=== PATIENT | male | born 1960 | race American Indian/Alaskan Native ===

== ENCOUNTER 2020-12-30 23:04 | Inpatient (IN) | payer SELFPAY ==
[2020-12-30] MEDS ORDERED: SODIUM CHLORIDE 0.9% 1000 ML 1,000 ML IV ONE ×2 (23:29→23:30)
[2020-12-30] MEDS ORDERED: VANCOMYCIN/NS 1 GM/250 ML 1 GM/250 ML BAG IV ONE (23:30)
[2020-12-30] MEDS ORDERED: ACETAMINOPHEN 500 MG TAB PO ONE (23:31)
--- NOTE | 2020-12-30 23:35 | Event Note ---
ED Screening Note Date of service: 12/30/20 Time: 23:32 ED Screening Note: Patient is a 60-year-old -[place] male with no known past medical history who presents to the ED with complaint of painful swollen ulcerated right plantar foot wound for the last 1 month. Patient states that he cannot remember what may have caused the wound in his right plantar foot and that he has not been able to walk in the last 1 week because of worsening pain, swelling. Prior to arrival in the ED, the family states that the swollen wound started draining thick purulent discharge with blood and they decided bring him over to the ED for evaluation. According to family the patient has not seen any physician in over 15 years. Patient denies headache, fall, heavy lifting, low back pain, dizziness, syncope, traumatic injury, nausea and vomiting, diarrhea, abdominal pain, chest pain or shortness of breath. In the ED, patient is alert and oriented x3 and is not in any distress. Patient is however tachycardic and febrile in triage. Physical exam reveals a quarter sized ulcerated right plantar foot wound with purulent discharge, swollen left foot with mild erythema on the dorsum of the right foot. This initial assessment/diagnostic orders/clinical plan/treatment(s) is/are subject to change based on patients health status, clinical progression and re- assessment by fellow clinical providers in the ED. Further treatment and workup at subsequent clinical providers discretion. Patient/guardian urged not to elope from the ED as their condition may be serious if not clinically assessed and managed. Initial orders include: CBC, CMP, EKG, chest x-ray, right foot x-ray, blood cultures,
--- NOTE | 2020-12-31 00:06 | XRay Report ---
RIGHT FOOT 3 VIEW(S) INDICATION / CLINICAL INFORMATION: right plantar foot ulcer: r/o osteomyelitis COMPARISON: None available. FINDINGS: BONES / JOINT(S): No acute fracture or subluxation. No significant arthritis. No osseous destruction. SOFT TISSUES: Soft tissue irregularity on the plantar aspect of the foot beneath the great toe. No so ft tissue gas. Moderate soft tissue swelling of the forefoot. ADDITIONAL FINDINGS: None. IMPRESSION: 1. Plantar foot ulcer with soft tissue swelling but no soft tissue gas or radiographic evidence for o steomyelitis. Signer Name: Irina Shell MD Signed: 12/31/2020 12:02 AM Workstation Name: [id number]
[2020-12-31 00:18] LABS: Basophils # (Auto) 0.1 K/mm3 (0.0-0.1); Basophils % (Auto) 0.7 % (0.0-1.8); Hematocrit 41.8 % (35.5-45.6); Hemoglobin 13.9 gm/dl (11.8-15.2); Lymphocytes # (Auto) 1.8 K/mm3 (1.2-5.4); Lymphocytes % (Auto) 9.9 % (13.4-35.0); Mean Corpuscular HGB Conc 33 % (32-34); Mean Corpuscular Volume 85 fl (84-94); Monocytes # (Auto) 1.9 K/mm3 (0.0-0.8); Monocytes % (Auto) 10.4 % (0.0-7.3); Platelet Count 212 K/mm3 (140-440); Red Blood Count 4.92 M/mm3 (3.65-5.03); Red Cell Distribution Width 13.1 % (13.2-15.2)
[2020-12-31 00:41] LABS: Alanine Aminotransferase 9 units/L (7-56); Albumin 4.1 g/dL (3.9-5); BUN/Creatinine Ratio 12; Blood Urea Nitrogen 14 mg/dL (9-20); Calcium 9.7 mg/dL (8.4-10.2); Hemolysis Index 4
--- NOTE | 2020-12-31 01:01 | XRay Report ---
CHEST 2 VIEWS INDICATION / CLINICAL INFORMATION: fever, weakness. COMPARISON: None available. FINDINGS: SUPPORT DEVICES: None. HEART / MEDIASTINUM: No significant abnormality. LUNGS / PLEURA: No significant pulmonary or pleural abnormality. No pneumothorax. ADDITIONAL FINDINGS: No significant additional findings. IMPRESSION: 1. No acute findings. Signer Name: Irina Shell MD Signed: 12/31/2020 12:56 AM Workstation Name: [id number]
[2020-12-31] MEDS ORDERED: SODIUM CHLORIDE 0.9% 1000 ML IV SOLN IV ONE (01:05)
[2020-12-31] MEDS ORDERED: INSULIN REGULAR, HUMAN 100 UNITS/1 ML IV ONE (01:13)
[2020-12-31] MEDS ORDERED: PIPERACIL/TAZOBACTA 4.5/NS 100 4.5 GM/100 ML VIAL IV ONE (01:16)
--- NOTE | 2020-12-31 01:18 | Emergency Department Report ---
ED General Adult HPI - General Chief complaint: Extremity Problem,Nontraumatic Stated complaint: RT FOOT INJURY Time Seen by Provider: 12/30/20 23:28 Source: patient Mode of arrival: Ambulatory Limitations: No Limitations - History of Present Illness Initial comments: Patient presents with a month-long history of increasing pain and swelling in the right foot. He had noticed a wound. He does subscribe to polydipsia and polyuria. He was concerned that he might be diabetic, but was never tested. There was no known trauma to the right foot. Over the ensuing month, his symptoms worsen. He ultimately decided to come here because of increasing pain and swelling. There has been no vomiting. There is no diarrhea. He has had no history of recent travel or trauma. Patient has no other rash. He has not noticed any other lesion. He has no chest pain or shortness of breath. He has not noticed hematuria. He has not been on antibiotics lately for any type of infectious process. The pain is an aching and burning pain. It is not aggravated by position. It is aggravated by palpation and ambulation. Severity scale (0 -10): 0 - Related Data Allergies Allergy/AdvReac Type Severity Reaction Status Date / Time No Known Allergies Allergy Unverified 12/30/20 23:18 ED Review of Systems ROS: Stated complaint: RT FOOT INJURY Other details as noted in HPI Comment: All other systems reviewed and negative Constitutional: denies: fever Eyes: denies: vision change ENT: denies: throat pain Respiratory: denies: cough Cardiovascular: denies: chest pain Endocrine: increased thirst, increased urine Gastrointestinal: denies: abdominal pain Genitourinary: denies: dysuria Musculoskeletal: denies: back pain Skin: as per HPI Neurological: denies: headache Hematological/Lymphatic: denies: easy bruising ED Past Medical Hx - Past Medical History Previous Medical History?: No - Surgical History Past Surgical History?: No - Family History Family history: diabetes - Social History Smoking Status: Never Smoker ED Physical Exam - General Limitations: No Limitations, Other (Pulse ox noted and normal) General appearance: alert, in no apparent distress - Head Head exam: Present: atraumatic, normocephalic, normal inspection - Eye Eye exam: Present: normal appearance, EOMI. Absent: scleral icterus - ENT ENT exam: Present: mucous membranes dry, normal external ear exam - Neck Neck exam: Present: normal inspection. Absent: meningismus - Respiratory Respiratory exam: Present: normal lung sounds bilaterally. Absent: respiratory distress - Cardiovascular Cardiovascular Exam: Present: normal rhythm, tachycardia - GI/Abdominal GI/Abdominal exam: Present: soft. Absent: tenderness - Extremities Exam Extremities exam: Present: normal capillary refill, other (There is a right foot ulcer over the MTP area with surrounding tenderness, warmth, and erythema. There is a bloody and purulent discharge noted. There is local tenderness.) - Back Exam Back exam: Absent: CVA tenderness (R), CVA tenderness (L) - Neurological Exam Neurological exam: Present: alert, oriented X3, CN II-XII intact, reflexes normal - Psychiatric Psychiatric exam: Present: normal affect, normal mood - Skin Skin exam: Present: warm, dry ED Course Vital Signs 12/30/20 12/31/20 23:18 00:43 Temperature 100.5 F H Pulse Rate 128 H Respiratory 16 Rate Blood Pressure 120/87 Blood Pressure 120/87 [Right] O2 Sat by Pulse 95 98 Oximetry - Reevaluation(s) Reevaluation #1: 12/31/20 01:20 Labs have been noted. Sepsis fluids were ordered. Case was discussed with the hospitalist who agrees to admit. Sepsis protocol has been instituted. ED Medical Decision Making - Lab Data Result diagrams: 12/30/20 23:54 12/30/20 23:54 Rhythm strip: Sinus tachycardia without ectopy per monitor observe 10 seconds. - Radiology Data Radiology results: report reviewed - Medical Decision Making Patient presents with a foot ulcer involving the right foot. He has new onset diabetes. He has lactic acidosis. Given the fact that he has a fever, tachycardia, leukocytosis, no source of infection, and lactic acidosis, he does meet criteria for severe sepsis. He does not have evidence of septic shock. He is not hypotensive. Broad-spectrum antibiotics have been administered. The hospitalist and pharmacist can decide on appropriate course with cefepime as opposed to Vanco and Zosyn. Cultures are sent. At this time, he does not have evidence of osteomyelitis. There is no gas formation. He does not have pain out of proportion to exam. I do not believe this represents necrotizing fasciitis. Patient does not have obvious pneumonia. He does not have respiratory symptoms. He will be aggressively treated for his new onset diabetes. We discussed diabetic foot management. Critical Care Time: No Critical care attestation.: If time is entered above; I have spent that time in minutes in the direct care of this critically ill patient, excluding procedure time. ED Disposition Clinical Impression: Cellulitis of right foot, Diabetes mellitus, new onset Sepsis Qualifiers: Sepsis type: sepsis due to unspecified organism Sepsis acute organ dysfunction status: without acute organ dysfunction Qualified Code(s): A41.9 - Sepsis, unspecified organism Disposition: 09 ADMITTED INPATIENT Is pt being admited?: Yes Condition: Stable Instructions: Diabetes Mellitus Type 2 in Adults (ED)
[2020-12-31] MEDS ORDERED: ONDANSETRON 4 MG/2 ML INJ IV PRN (03:36)
[2020-12-31] MEDS ORDERED: HYDROmorphone 1 MG/1 ML INJ IV PRN (03:36)
[2020-12-31] MEDS ORDERED: oxyCODONE /ACETAMINOPHEN 5-325MG TAB PO PRN (03:36)
[2020-12-31] MEDS ORDERED: DEXTROSE 50% IN WATER (25GM) 50 ML SYRINGE IV PRN (03:36)
[2020-12-31] MEDS ORDERED: ALBUTEROL 2.5 MG/3 ML NEBU IH PRN ×2 (03:36→10:26)
[2020-12-31] MEDS ORDERED: SODIUM CHLORIDE 0.9% 1000 ML 1,000 ML IV SCH (03:45)
--- NOTE | 2020-12-31 03:45 | History and Physical Report ---
History of Present Illness Date of examination: 12/31/20 Date of admission: 12/31/20 Chief complaint: Right foot diabetic ulcer History of present illness: 60-year-old male with no known past medical history was brought to the emergency room because of painful swollen ulcerated right plantar foot wound for the last 1 month. Patient states that he cannot remember what may have caused the wound in his right plantar foot and that he has not been able to walk in the last 1 week because of worsening pain, swelling. Prior to arrival in the ED, the family states that the swollen wound started draining thick purulent discharge with blood and they decided bring him over to the ED for evaluation. According to family the patient has not seen any physician in over 15 years. Patient denies headache, fall, heavy lifting, low back pain, dizziness, syncope, traumatic inj ury, nausea and vomiting, diarrhea, abdominal pain, chest pain or shortness of breath. Patient is however tachycardic and febrile in triage. Physical exam reveals a quarter sized ulcerated right plantar foot wound with purulent discharge, swollen left foot with mild erythema on the dorsum of the right foot. In the emergency room patient WBC is 18.6 and lactic acid 3.10. X-ray of the foot shows plantar foot ulcer with soft tissue swelling but no soft tissue gas or radiographic evidence for osteomyelitis. Admit the patient to the medical floor we will put the patient on Vanco and Zosyn and consult infectious disease as well as orthopedic surgeon Med rec is not available Medications and Allergies Allergies Allergy/AdvReac Type Severity Reaction Status Date / Time No Known Allergies Allergy Unverified 12/30/20 23:18 Active Meds: Active Medications Acetaminophen (Acetaminophen 325 Mg Tab) 650 mg PO Q4H PRN PRN Reason: Pain MILD(1-3)/Fever >100.5/BOURGEOIS Albuterol (Albuterol 2.5 Mg/3 Ml Nebu) 2.5 mg IH Q4HRT PRN PRN Reason: Shortness Of Breath Albuterol/Ipratropium (Ipratropium/Albuterol Sulfate 3 Ml Ampul.Neb) 1 ampul IH Q6HRT [facility] Dextrose (Dextrose 50% In Water (25gm) 50 Ml Syringe) 50 ml IV Q30MIN PRN; Protocol PRN Reason: Hypoglycemia Famotidine (Famotidine 20 Mg Tab) 20 mg PO BID BARB Heparin Sodium (Porcine) (Heparin 5,000 Unit/1 Ml Vial) 5,000 unit SUB-Q Q8HR BARB Hydromorphone HCl (Hydromorphone 1 Mg/1 Ml Inj) 0.5 mg IV Q3H PRN PRN Reason: Pain , Severe (7-10) Sodium Chloride (Nacl 0.9% 1000 Ml) 1,000 mls @ 100 mls/hr IV DIRECT BARB Vancomycin HCl (Vancomycin/Ns 1 Gm/250 Ml) 1 gm in 250 mls @ 166.667 mls/hr IV Q12H BARB; Protocol Piperacillin Sod/Tazobactam Sod (Zosyn/Ns 4.5gm/100ml) 4.5 gm in 100 mls @ 200 mls/hr IV Q8H BARB; Protocol Insulin Human Lispro (Insulin Lispro 100 Unit/Ml) 0 unit SUB-Q ACHS BARB; Protocol Ondansetron HCl (Ondansetron 4 Mg/2 Ml Inj) 4 mg IV Q8H PRN PRN Reason: Nausea And Vomiting Oxycodone/Acetaminophen (Oxycodone /Acetaminophen 5-325mg Tab) 1 tab PO Q6H PRN PRN Reason: Pain, Moderate (4-6) Sodium Chloride (Sodium Chloride 0.9% 10 Ml Flush Syringe) 10 ml IV BID BARB Sodium Chloride (Sodium Chloride 0.9% 10 Ml Flush Syringe) 10 ml IV PRN PRN PRN Reason: LINE FLUSH Review of Systems All systems: negative Musculoskeletal: other (Right foot ulcer) Exam - Constitutional Vitals: Temp Pulse Resp BP Pulse Ox 100.5 F H 108 H 20 119/75 98 12/30/20 23:18 12/31/20 01:40 12/31/20 01:40 12/31/20 01:40 12/31/20 01:40 General appearance: Present: no acute distress, well-nourished - EENT Eyes: Present: PERRL ENT: hearing intact, clear oral mucosa - Neck Neck: Present: supple, normal ROM - Respiratory Respiratory effort: normal Respiratory: bilateral: CTA - Cardiovascular Heart Sounds: Present: S1 & S2. Absent: rub, click - Extremities Extremities: pulses symmetrical, No edema Extremity abnormal: edema, ulceration, erythema, black Peripheral Pulses: within normal limits - Abdominal General gastrointestinal: Present: soft, non-tender, non-distended, normal bowel sounds Male genitourinary: Present: normal - Integumentary Integumentary: Present: clear, warm, dry - Musculoskeletal Musculoskeletal: gait normal, strength equal bilaterally - Psychiatric Psychiatric: appropriate mood/affect, intact judgment & insight - Neurologic Neurologic: CNII-XII intact, moves all extremities HEART Score - HEART Score Troponin: Troponin T < 0.010 ng/mL (0.00-0.029) 12/30/20 23:54 Results - Labs CBC & Chem 7: 12/30/20 23:54 12/30/20 23:54 Labs: Laboratory Last Values WBC 18.6 K/mm3 (4.5-11.0) H 12/30/20 23:54 RBC 4.92 M/mm3 (3.65-5.03) 12/30/20 23:54 Hgb 13.9 gm/dl (11.8-15.2) 12/30/20 23:54 Hct 41.8 % (35.5-45.6) 12/30/20 23:54 MCV 85 fl (84-94) 12/30/20 23:54 MCH 28 pg (28-32) 12/30/20 23:54 MCHC 33 % (32-34) 12/30/20 23:54 RDW 13.1 % (13.2-15.2) L 12/30/20 23:54 Plt Count 212 K/mm3 (140-440) 12/30/20 23:54 Lymph % (Auto) 9.9 % (13.4-35.0) L 12/30/20 23:54 [place] % (Auto) 10.4 % (0.0-7.3) H 12/30/20 23:54 Eos % (Auto) 0.0 % (0.0-4.3) 12/30/20 23:54 Baso % (Auto) 0.7 % (0.0-1.8) 12/30/20 23:54 Lymph # (Auto) 1.8 K/mm3 (1.2-5.4) 12/30/20 23:54 [place] # (Auto) 1.9 K/mm3 (0.0-0.8) H 12/30/20 23:54 Eos # (Auto) 0.0 K/mm3 (0.0-0.4) 12/30/20 23:54 Baso # (Auto) 0.1 K/mm3 (0.0-0.1) 12/30/20 23:54 Seg Neutrophils % 79.0 % (40.0-70.0) H 12/30/20 23:54 Seg Neutrophils # 14.7 K/mm3 (1.8-7.7) H 12/30/20 23:54 Sodium 133 mmol/L (137-145) L 12/30/20 23:54 Potassium 4.3 mmol/L (3.6-5.0) 12/30/20 23:54 Chloride 93.9 mmol/L (98-107) L 12/30/20 23:54 Carbon Dioxide 22 mmol/L (22-30) 12/30/20 23:54 Anion Gap 21 mmol/L 12/30/20 23:54 BUN 14 mg/dL (9-20) 12/30/20 23:54 Creatinine 1.2 mg/dL (0.8-1.3) 12/30/20 23:54 Estimated GFR > 60 ml/min 12/30/20 23:54 BUN/Creatinine Ratio 12 % 12/30/20 23:54 Glucose 409 mg/dL (75-100) H 12/30/20 23:54 Lactic Acid 3.10 mmol/L (0.7-2.0) H* 12/30/20 23:54 Calcium 9.7 mg/dL (8.4-10.2) 12/30/20 23:54 Total Bilirubin 1.40 mg/dL (0.1-1.2) H 12/30/20 23:54 AST 12 units/L (5-40) 12/30/20 23:54 ALT 9 units/L (7-56) 12/30/20 23:54 Alkaline Phosphatase 80 units/L (35-129) 12/30/20 23:54 Troponin T < 0.010 ng/mL (0.00-0.029) 12/30/20 23:54 Total Protein 8.9 g/dL (6.3-8.2) H 12/30/20 23:54 Albumin 4.1 g/dL (3.9-5) 12/30/20 23:54 Albumin/Globulin Ratio 0.9 % 12/30/20 23:54 - Imaging and Cardiology Chest x-ray: report reviewed Assessment and Plan VTE prophylaxis?: Chemical Plan of care discussed with patient/family: Yes - Patient Problems (1) Cellulitis of right foot Current Visit: Yes Status: Acute Plan to address problem: Admit the patient to the medical floor. Normal saline at the rate of 100 cc/h. Vancomycin 1 g IV every 12 hours. Zosyn 4.5 g IV every 8 hours. We do the blood culture wound culture. Will consult orthopedic as well as infectious disease evaluation. We also consult wound care evaluation. Recheck CBC CMP in the morning (2) Sepsis Current Visit: Yes Status: Acute Qualifiers: Sepsis type: sepsis due to unspecified organism Sepsis acute organ dysfunction status: without acute organ dysfunction Qualified Code(s): A41.9 - Sepsis, unspecified organism Plan to address problem: Vancomycin 1 g IV every 12 hours. Zosyn 4.5 g IV every 8 hours. We do the blood culture wound culture. Will consult orthopedic as well as infectious disease evaluation. We also consult wound care evaluation. Recheck CBC CMP in the morning (3) Diabetes mellitus, new onset Current Visit: Yes Status: Acute Plan to address problem: 1800 kcal ADA diet. Humalog sliding scale with moderate dose coverage with Accu-Chek before meals and at bedtime. Diabetic education. Recheck BMP in the morning (4) DVT prophylaxis Current Visit: Yes Status: Acute Plan to address problem: Heparin 5000 units subcu every 8 hours for DVT prophylaxis. Pepcid 20 mg p.o. twice daily for GI prophylaxis. Patient is a full code
[2020-12-31] MEDS ORDERED: VANCOMYCIN/NS 1 GM/250 ML 1 GM/250 ML BAG IV SCH (04:00)
[2020-12-31] MEDS: HEPARIN 5,000 UNIT/1 ML VIAL SUB-Q SCH ×3 (06:24→22:15)
[2020-12-31] MEDS ORDERED: SODIUM CHLORIDE 0.9% 1000 ML 1,000 ML IV ONE (07:30)
[2020-12-31] MEDS ORDERED: IPRATROPIUM/ALBUTEROL SULFATE 3 ML AMPUL.NEB IH SCH (08:00)
--- NOTE | 2020-12-31 09:09 | XRay Report ---
CHEST 1 VIEW 12/31/2020 8:00 AM INDICATION / CLINICAL INFORMATION: Fever, sepsis. COMPARISON: 12/30/2020 FINDINGS: SUPPORT DEVICES: None. HEART / MEDIASTINUM: No significant abnormality. LUNGS / PLEURA: No significant pulmonary or pleural abnormality. No pneumothorax. ADDITIONAL FINDINGS: No significant additional findings. IMPRESSION: 1. No acute findings. Signer Name: Jon Patterson MD Signed: 12/31/2020 9:04 AM Workstation Name: [id number]
[2020-12-31] MEDS: VANCOMYCIN 1,250 MG in SODIUM CHLORIDE 0.9% 250ML 250 ML IV SCH ×2 (09:15→22:33)
[2020-12-31] MEDS: FAMOTIDINE 20 MG TAB PO SCH ×2 (09:16→22:15)
[2020-12-31] MEDS: INSULIN LISPRO 100 UNIT/ML SUB-Q SCH ×4 (09:16→22:33)
[2020-12-31 09:55] LABS: BUN/Creatinine Ratio 15; Blood Urea Nitrogen 12 mg/dL (9-20); Calcium 8.4 mg/dL (8.4-10.2); Hemolysis Index 2
[2020-12-31] MEDS ORDERED: PIPERACIL/TAZOBACTA 4.5/NS 100 4.5 GM/100 ML VIAL IV SCH (10:00)
--- NOTE | 2020-12-31 11:50 | Consultation ---
History of Present Illness - Reason for Consult Consult date: 12/31/20 - History of Present Illness 60-year-old man past medical history unknown presented to hospital complaining of plantar foot ulcer. His antibiotic, prior to admission, and it is not known what initiated the ulcer. Over the past 1 week he has been playing this is associated with purulent drainage. He has not been to care physician in 15 years. Febrile to 100.5 but white count 18.6. Blood cultures no growth so far. C urrently on vancomycin and Zosyn. Imaging personally reviewed: Foot x-ray: No evidence of osteo Review of Systems: Bold if positive, otherwise negative General: fevers, chills, rigors HEENT: visual disturbance, diplopia, eye pain Respiratory: cough, sputum, hemoptysis, shortness of breath Cardiovascular: chest pain, syncope Gastrointestinal: nausea, vomiting, diarrhea, abdominal pain Genitourinary: dysuria, hematuria, flank pain Musculoskeletal: neck pain, back pain, joint pain, edema Neurologic: headaches, seizures Hematologic: easy bruising or bleeding Endocrine: night sweats, acute weight loss Skin: rash, jaundice, redness Psychiatric: suicidal, homicidal ideation Past History Past Medical History: No medical history Past Surgical History: No surgical history Social history: no significant social history Family history: diabetes Medications and Allergies Allergies Allergy/AdvReac Type Severity Reaction Status Date / Time No Known Allergies Allergy Verified 12/31/20 03:49 Home Medications Medication Instructions Recorded Confirmed Last Taken Type No Known Home Medications [No 12/31/20 12/31/20 Unknown History Reported Home Medications] Active Meds: Active Medications Acetaminophen (Acetaminophen 325 Mg Tab) 650 mg PO Q4H PRN PRN Reason: Pain MILD(1-3)/Fever >100.5/BOURGEOIS Albuterol (Albuterol 2.5 Mg/3 Ml Nebu) 2.5 mg IH Q4HRT PRN PRN Reason: Shortness Of Breath Famotidine (Famotidine 20 Mg Tab) 20 mg PO BID [facility] Last Admin: 12/31/20 09:16 Dose: 20 mg Documented by: Heparin Sodium (Porcine) (Heparin 5,000 Unit/1 Ml Vial) 5,000 unit SUB-Q Q8HR [facility] Last Admin: 12/31/20 06:24 Dose: 5,000 unit Documented by: Piperacillin Sod/Tazobactam Sod (Zosyn/Ns 4.5gm/100ml) 4.5 gm in 100 mls @ 200 mls/hr IV Q8H BARB; Protocol Last Admin: 12/31/20 09:16 Dose: 200 mls/hr Documented by: Sodium Chloride (Nacl 0.9% 1000 Ml) 1,000 mls @ 125 mls/hr IV DIRECT BARB Vancomycin HCl 1,250 mg/ (Sodium Chloride) 275 mls @ 166.667 mls/hr IV Q12HR [facility] Last Admin: 12/31/20 09:15 Dose: 166.667 mls/hr Documented by: Insulin Human Lispro (Insulin Lispro 100 Unit/Ml) 0 unit SUB-Q ACHS BARB; Protocol Last Admin: 12/31/20 09:16 Dose: 4 unit Documented by: Ondansetron HCl (Ondansetron 4 Mg/2 Ml Inj) 4 mg IV Q8H PRN PRN Reason: Nausea And Vomiting Oxycodone/Acetaminophen (Oxycodone /Acetaminophen 5-325mg Tab) 1 tab PO Q6H PRN PRN Reason: Pain, Moderate (4-6) Sodium Chloride (Sodium Chloride 0.9% 10 Ml Flush Syringe) 10 ml IV BID [facility] Last Admin: 12/31/20 09:17 Dose: 10 ml Documented by: Sodium Chloride (Sodium Chloride 0.9% 10 Ml Flush Syringe) 10 ml IV PRN PRN PRN Reason: LINE FLUSH Physical Examination - Physical Exam Narrative exam: Physical Exam: Constitutional: Alert, cooperative. No acute distress Head, Ears, Nose: Normocephalic, atraumatic. External ears, nose normal Eyes: Conjunctivae/corneas clear. No icterus. No ptosis. Neck: Supple, no meningeal signs Oral: dentition fair, no thrush Cardiovascular: S1, S2 normal. Respiratory: Good air entry, clear to auscultation bilaterally GI: Soft, non-tender; bowel sounds normal. No peritoneal signs. Musculoskeletal: Right foot plantar ulcer Skin: No rash or abscess Hem/Lymphatic: No palpable cervical or supraclavicular nodes. No lymphangitis Psych: Mood ok. Affect normal Neurological: Awake, alert, oriented. No gross abnormality - Constitutional Vitals: Vital Signs Temp Pulse Resp BP Pulse Ox 99.9 F H 100 H 18 112/78 100 12/31/20 03:42 12/31/20 03:42 12/31/20 04:01 12/31/20 03:42 12/31/20 10:20 Temperature -Last 24 Hours Temperature 99.9 F Temperature 100.5 F Temperature 100.5 F Results - Labs CBC & Chem 7: 12/30/20 23:54 12/31/20 08:36 Labs: Abnormal lab results 12/30/20 12/30/20 12/30/20 Range/Units 23:54 23:54 23:54 WBC 18.6 H (4.5-11.0) K/mm3 RDW 13.1 L (13.2-15.2) % Lymph % (Auto) 9.9 L (13.4-35.0) % [place] % (Auto) 10.4 H (0.0-7.3) % [place] # (Auto) 1.9 H (0.0-0.8) K/mm3 Seg Neutrophils % 79.0 H (40.0-70.0) % Seg Neutrophils # 14.7 H (1.8-7.7) K/mm3 Sodium 133 L (137-145) mmol/L Chloride 93.9 L (98-107) mmol/L Glucose 409 H (75-100) mg/dL POC Glucose (70-105) mg/dL Hemoglobin A1c (4-6) % Lactic Acid 3.10 H* (0.7-2.0) mmol/L Total Bilirubin 1.40 H (0.1-1.2) mg/dL Total Protein 8.9 H (6.3-8.2) g/dL 12/31/20 12/31/20 12/31/20 Range/Units 08:36 08:36 08:43 WBC (4.5-11.0) K/mm3 RDW (13.2-15.2) % Lymph % (Auto) (13.4-35.0) % [place] % (Auto) (0.0-7.3) % [place] # (Auto) (0.0-0.8) K/mm3 Seg Neutrophils % (40.0-70.0) % Seg Neutrophils # (1.8-7.7) K/mm3 Sodium 135 L (137-145) mmol/L Chloride (98-107) mmol/L Glucose 274 H (75-100) mg/dL POC Glucose 273 H (70-105) mg/dL Hemoglobin A1c 10.0 H (4-6) % Lactic Acid (0.7-2.0) mmol/L Total Bilirubin (0.1-1.2) mg/dL Total Protein (6.3-8.2) g/dL Assessment and Plan Cultures: Blood culture pending A/P: Unknown past medical history presented to the hospital complaining of a right foot ulcer. #Acute sepsis: Present with leukocytosis and fevers, secondary to infected foot wound. #Right foot wound: Concern osteomyelitis, negative foot x-ray. Recommend MRI. #Hyperglycemia: Likely diabetic, check hemoglobin A1c. Recs: -Check right foot MRI -Arterial Dopplers -Consult wound care/Dr. Alcantar -Continue vancomycin dosed per pharmacy, goal trough 10-20 -Stop Zosyn, start Unasyn -Obtain wound culture. Thank you for the consult, we will continue to follow. Kuldeep Valadez MD [facility] ([facility] O: [phone] F: [phone]
[2020-12-31] MEDS ORDERED: FLU VACC QUAD 2021-22(6MOS UP)/PF 60 MCG/0.5 ML SYRINGE IM ONE (12:00)
[2020-12-31] MEDS ORDERED: VANCOMYCIN 1,500 MG in SODIUM CHLORIDE 0.9% 500 ML 500 ML IV SCH (12:00)
--- NOTE | 2020-12-31 17:02 | Magnetic Resonance Report ---
MRI RIGHT FOOT WITHOUT AND WITH CONTRAST INDICATION / CLINICAL INFORMATION: diabetic ulcer, r/p osteo. TECHNIQUE: Multiplanar, multisequence MR images were obtained. COMPARISON: Right foot radiographs 12/30/2020 FINDINGS: Skin ulceration along the plantar aspect underlying the first MTP joint which measures approximately 1.7 x 2.7 cm. There is diffuse soft tissue swelling throughout the forefoot which demonstrates enhanc ement on postcontrast imaging. There is no discrete fluid collection to suggest abscess. There is no abnormal marrow signal to suggest osteomyelitis. There are a few small foci of gas noted within the s oft tissues between the first and second metatarsals. Diffuse fatty atrophy and intramuscular edema of the intrinsic foot musculature. IMPRESSION: Plantar ulceration underlying the medial aspect of the first MTP joint with associated cellulitis/gas gangrene. No evidence of discrete abscess or osteomyelitis. Report dictated by: Fish Sorto MD Report dictated on: 12/31/2020 2:25 PM I have reviewed the images, agree with this report, and edited this report as needed. Signer Name: Jase Tellez MD Signed: 12/31/2020 4:57 PM Workstation Name: [id number]
--- NOTE | 2020-12-31 17:44 | Progress Note ---
Assessment and Plan Assessment and plan: 60-year-old male with no known past medical history was brought to the emergency room because of painful swollen ulcerated right plantar foot wound for the last 1 month. Patient states that he cannot remember what may have caused the wound in his right plantar foot and that he has not been able to walk in the last 1 week because of worsening pain, swelling. Prior to arrival in the ED, the family states that the swollen wound started draining thick purulent discharge with blood and they decided bring him over to the ED for evaluation. According to family the patient has not seen any physician in over 15 years. Patient denies headache, fall, heavy lifting, low back pain, dizziness, syncope, traumatic injury, nausea and vomiting, diarrhea, abdominal pain, chest pain or shortness of breath. Patient is however tachycardic and febrile in triage. Physical exam reveals a quarter sized ulcerated right plantar foot wound with purulent discharge, swollen left foot with mild erythema on the dorsum of the right foot. In the emergency room patient WBC is 18.6 and lactic acid 3.10. X-ray of the foot shows plantar foot ulcer with soft tissue swelling but no soft tissue gas or radiographic evidence for osteomyelitis. Admit the patient to the medical floor we will put the patient on Vanco and Zosyn and consult infectious disease as well as orthopedic surgeon (1) diabetic ulcer with cellulitis of right foot Current Visit: Yes Status: Acute Plan to address problem: Admit the patient to the medical floor. Normal saline at the rate of 100 cc/h. Vancomycin 1 g IV every 12 hours. Zosyn 4.5 g IV every 8 hours. We do the blood culture wound culture. Will consult Dr. Alcantar as well as infectious d isease evaluation. We also consult wound care evaluation. Will need debridement. MRI shows no osteomyelitis. (2) Sepsis with fever, leukocytosis and lactic acidosis, improving Current Visit: Yes Status: Acute Qualifiers: Sepsis type: sepsis due to unspecified organism Sepsis acute organ dysfunction status: without acute organ dysfunction Qualified Code(s): A41.9 - Sepsis, unspecified organism Plan to address problem: Improving, continue current antibiotic therapy. (3) Diabetes mellitus, new onset, A1c 10 Current Visit: Yes Status: Acute Plan to address problem: 1800 kcal ADA diet. Lantus with Humalog sliding scale with moderate dose coverage with Accu-Chek before meals and at bedtime. Diabetic education. Accu- Cheks and optimize glycemic control. Start Metformin and glipizide once sepsis improves (4) DVT prophylaxis Current Visit: Yes Status: Acute Plan to address problem: Heparin 5000 units subcu every 8 hours for DVT prophylaxis. Pepcid 20 mg p.o. twice daily for GI prophylaxis. Patient is a full code Discussed with patient and his at bedside. History Interval history: Fever and leukocytosis resolving. Vital signs stable. No GI symptoms. Right foot ulcer still draining. No significant pain likely from neuropathy. Hospitalist Physical - Constitutional Vitals: Temp Pulse Resp BP Pulse Ox 98.5 F 91 H 18 111/77 96 12/31/20 11:25 12/31/20 11:25 12/31/20 11:25 12/31/20 11:25 12/31/20 11:25 General appearance: Present: no acute distress, well-nourished, obese - EENT Eyes: Present: PERRL, EOM intact ENT: clear oral mucosa - Neck Neck: Present: supple - Respiratory Respiratory effort: normal Respiratory: bilateral: CTA - Cardiovascular Rhythm: regular - Extremities Extremities: No edema Extremity abnormal: other (There is a shallow ulcer over the plantar aspect of left first metatarsophalangeal joint she is draining some purulence. Dorsum of the right foot is mildly swollen and red. Pedal pulses intact.) - Abdominal General gastrointestinal: soft, non-tender - Integumentary Integumentary: Absent: rash - Psychiatric Psychiatric: appropriate mood/affect - Neurologic Neurologic: no focal deficits HEART Score - HEART Score Troponin: Troponin T < 0.010 ng/mL (0.00-0.029) 12/30/20 23:54 Results - Labs CBC & Chem 7: 01/01/21 04:00 01/01/21 04:00 Labs: Laboratory Last Values WBC 18.6 K/mm3 (4.5-11.0) H 12/30/20 23:54 RBC 4.92 M/mm3 (3.65-5.03) 12/30/20 23:54 Hgb 13.9 gm/dl (11.8-15.2) 12/30/20 23:54 Hct 41.8 % (35.5-45.6) 12/30/20 23:54 MCV 85 fl (84-94) 12/30/20 23:54 MCH 28 pg (28-32) 12/30/20 23:54 MCHC 33 % (32-34) 12/30/20 23:54 RDW 13.1 % (13.2-15.2) L 12/30/20 23:54 Plt Count 212 K/mm3 (140-440) 12/30/20 23:54 Lymph % (Auto) 9.9 % (13.4-35.0) L 12/30/20 23:54 [place] % (Auto) 10.4 % (0.0-7.3) H 12/30/20 23:54 Eos % (Auto) 0.0 % (0.0-4.3) 12/30/20 23:54 Baso % (Auto) 0.7 % (0.0-1.8) 12/30/20 23:54 Lymph # (Auto) 1.8 K/mm3 (1.2-5.4) 12/30/20 23:54 [place] # (Auto) 1.9 K/mm3 (0.0-0.8) H 12/30/20 23:54 Eos # (Auto) 0.0 K/mm3 (0.0-0.4) 12/30/20 23:54 Baso # (Auto) 0.1 K/mm3 (0.0-0.1) 12/30/20 23:54 Seg Neutrophils % 79.0 % (40.0-70.0) H 12/30/20 23:54 Seg Neutrophils # 14.7 K/mm3 (1.8-7.7) H 12/30/20 23:54 Sodium 135 mmol/L (137-145) L 12/31/20 08:36 Potassium 3.6 mmol/L (3.6-5.0) 12/31/20 08:36 Chloride 100.6 mmol/L (98-107) 12/31/20 08:36 Carbon Dioxide 22 mmol/L (22-30) 12/31/20 08:36 Anion Gap 16 mmol/L 12/31/20 08:36 BUN 12 mg/dL (9-20) 12/31/20 08:36 Creatinine 0.8 mg/dL (0.8-1.3) 12/31/20 08:36 Estimated GFR > 60 ml/min 12/31/20 08:36 BUN/Creatinine Ratio 15 % 12/31/20 08:36 Glucose 274 mg/dL (75-100) H 12/31/20 08:36 POC Glucose 158 mg/dL (70-105) H 12/31/20 15:55 Hemoglobin A1c 10.0 % (4-6) H 12/31/20 08:36 Lactic Acid 1.60 mmol/L (0.7-2.0) 12/31/20 05:42 Calcium 8.4 mg/dL (8.4-10.2) 12/31/20 08:36 Total Bilirubin 1.40 mg/dL (0.1-1.2) H 12/30/20 23:54 AST 12 units/L (5-40) 12/30/20 23:54 ALT 9 units/L (7-56) 12/30/20 23:54 Alkaline Phosphatase 80 units/L (35-129) 12/30/20 23:54 Troponin T < 0.010 ng/mL (0.00-0.029) 12/30/20 23:54 Total Protein 8.9 g/dL (6.3-8.2) H 12/30/20 23:54 Albumin 4.1 g/dL (3.9-5) 12/30/20 23:54 Albumin/Globulin Ratio 0.9 % 12/30/20 23:54 Microbiology: Microbiology 12/30/20 23:54 Peripheral/Venous Blood Culture - Preliminary Culture in Progress 12/31/20 00:00 Peripheral/Venous Blood Culture - Preliminary Culture in Progress [place]iza/IV: Voiding Method Toilet Active Medications - Current Medications Current Medications: Generic Name Dose Route Start Last Admin Trade Name Freq PRN Reason Stop Dose Admin Acetaminophen 650 mg 12/31/20 03:36 Acetaminophen 325 Mg Tab PO Q4H PRN Pain MILD(1-3)/Fever >100.5/BOURGEOIS Albuterol 2.5 mg 12/31/20 10:26 Albuterol 2.5 Mg/3 Ml Nebu IH Q4HRT PRN Shortness Of Breath Famotidine 20 mg 12/31/20 10:00 12/31/20 09:16 Famotidine 20 Mg Tab PO 20 mg BID BARB Administration Heparin Sodium (Porcine) 5,000 unit 12/31/20 06:00 12/31/20 15:36 Heparin 5,000 Unit/1 Ml Vial SUB-Q 5,000 unit Q8HR BARB Administration Sodium Chloride 1,000 mls @ 125 mls/hr 12/31/20 07:30 Nacl 0.9% 1000 Ml IV DIRECT BARB Vancomycin HCl 1,250 mg/ 275 mls @ 166.667 mls/hr 12/31/20 10:00 12/31/20 09:15 Sodium Chloride IV 166.667 mls/hr Q12HR BARB Administration Ampicillin Sodium/Sulbactam Sodium 3 gm in 100 mls @ 200 mls/hr 12/31/20 18:00 Unasyn/Ns 3 Gm/100 Ml IV Q6HR BARB Insulin Human Lispro 0 unit 12/31/20 07:30 12/31/20 15:30 Insulin Lispro 100 Unit/Ml SUB-Q 2 unit ACHS BARB Administration Protocol Ondansetron HCl 4 mg 12/31/20 03:36 Ondansetron 4 Mg/2 Ml Inj IV Q8H PRN Nausea And Vomiting Oxycodone/Acetaminophen 1 tab 12/31/20 03:36 Oxycodone /Acetaminophen 5-325mg Tab PO Q6H PRN Pain, Moderate (4-6) Sodium Chloride 10 ml 12/31/20 10:00 12/31/20 09:17 Sodium Chloride 0.9% 10 Ml Flush Syringe IV 10 ml BID BARB Administration Sodium Chloride 10 ml 12/31/20 03:36 Sodium Chloride 0.9% 10 Ml Flush Syringe IV PRN PRN LINE FLUSH Nutrition/Malnutrition Assess - Dietary Evaluation Nutrition/Malnutrition Findings: Nutrition Notes Start: 12/31/20 11:17 Freq: Status: Active Protocol: Document 12/31/20 11:17 GB (Rec: 12/31/20 11:42 GB [id number]) Nutrition Notes Need for Assessment generated from: MD Order,Education Initial or Follow up Assessment Current Diagnosis Diabetes,Sepsis Other Pertinent Diagnosis cellulitis if right foot Current Diet Consistent carbohydrate Labs/Tests 12/31: Na 135, glucose 274 ( improved from 409), A1c 10 Pertinent Medications Piperacillin Na/ Tazobactam Na , Vancomycin HCl Height 5 ft 9 in Weight 103.873 kg [place] Body Weight (kg) 72.72 BMI 33.7 Intake Prior to Admission Good Weight change and time frame Admit weight. No reported weight changes upon admission Weight Status Obese Subjective/Other Information MD consult: diet education H/P: right foot ulcer, no known past med history, Has not been to primary for ~15yrs . BM: no movement recorded at time of assessment Percent of energy/protein needs met: Unable to assess. No diet order at this time. Burn Absent Trauma Absent GI Symptoms None Food Allergy No Skin Integrity/Comment Rt foot ulcer Current % PO Other Minimum of two criteria No #1 Nutrition Diagnosis Increased nutrient needs ( specify in comment below) Comments: protein Etiology Cellulitis right foot As Evidenced by Signs and Symptoms Rt foot ulcer for one month not healing Is patient on ventilator? No Is Patient Ambulatory and/or Out of Bed Yes REE-(Emanuel-St. Jeor-ambulatory/OOB) [ 2403.843 [id number]] Kcal/Kg value to use for calculation 20 Approximate Energy Requirements Using 7 kcal/Kg Calculation Used for Recommendations Kcal/kg Additional Notes Protein: 0.8-1.2 g/kg @ 104k-125g Fluids: 1ml/kcal or per MD Nutrition Intervention Change Diet Order: Consistent Carbohydrate Nutrition Support: n/a Add Supplement/Snack (indicate name/kcal [place] BID for wound /protein ) Provides kCal: 190 Provides Protein (gm) 5 Teaching Recipient Patient,Significant Other Learning Readiness Good Teaching Methods Discussion,Handout Response to Teaching Verbalize understanding Education Handouts Provided AND: General healthy nutrition edcuation packet with tips to manage manage DM. Barriers to Learning No Barriers Goal #1 Diet advanced to consistent Carbohydrate Goal #2 PO intake of meals to be 75% or greater daily for LOS Goal #3 AND general nutrition education packet provided/ reviewed Follow-Up By: 01/17/21 Additional Comments f/u: DM questions to review, po intake
[2020-12-31] MEDS: AMPICILLIN/SULBACTA 3GM/100ML 3 GM/100 ML BAG IV SCH (18:36)
[2020-12-31] MEDS: SODIUM CHLORIDE 0.9% 1000 ML 1,000 ML IV SCH (18:42)
[2021-01-01] MEDS: AMPICILLIN/SULBACTA 3GM/100ML 3 GM/100 ML BAG IV SCH ×4 (01:44→20:56)
[2021-01-01 05:35] LABS: Basophils % (Auto) 0.3 % (0.0-1.8); Eosinophils # (Auto) 0.1 K/mm3 (0.0-0.4); Hematocrit 36.1 % (35.5-45.6); Hemoglobin 11.9 gm/dl (11.8-15.2); Lymphocytes # (Auto) 2.3 K/mm3 (1.2-5.4); Lymphocytes % (Auto) 17.6 % (13.4-35.0); Mean Corpuscular HGB Conc 33 % (32-34); Mean Corpuscular Volume 86 fl (84-94); Monocytes # (Auto) 1.1 K/mm3 (0.0-0.8); Monocytes % (Auto) 8.5 % (0.0-7.3); Platelet Count 195 K/mm3 (140-440); Red Blood Count 4.22 M/mm3 (3.65-5.03)
[2021-01-01 05:46] LABS: Blood Urea Nitrogen 8 mg/dL (9-20); Calcium 8.3 mg/dL (8.4-10.2); Hemolysis Index 2
[2021-01-01] MEDS: HEPARIN 5,000 UNIT/1 ML VIAL SUB-Q SCH ×3 (05:54→21:04)
[2021-01-01 06:01] LABS: BUN/Creatinine Ratio 13
[2021-01-01] MEDS: FAMOTIDINE 20 MG TAB PO SCH ×2 (09:56→21:04)
[2021-01-01] MEDS: INSULIN GLARGINE 100 UNITS/ML SUB-Q SCH (09:57)
[2021-01-01] MEDS: INSULIN LISPRO 100 UNIT/ML SUB-Q SCH ×4 (09:57→23:33)
--- NOTE | 2021-01-01 09:58 | Consultation ---
History of Present Illness Consult date: 01/01/21 - History of present illness History of present illness: 60 yo male, newly diagnosed with DM with draining right foot ulcer. Past History Past Medical History: diabetes Past Surgical History: No surgical history Social history: no significant social history Family history: diabetes Medications and Allergies Allergies Allergy/AdvReac Type Severity Reaction Status Date / Time No Known Allergies Allergy Verified 12/31/20 03:49 Home Medications Medication Instructions Recorded Confirmed Last Taken Type No Known Home Medications [No 12/31/20 12/31/20 Unknown History Reported Home Medications] Active Meds: Active Medications Acetaminophen (Acetaminophen 325 Mg Tab) 650 mg PO Q4H PRN PRN Reason: Pain MILD(1-3)/Fever >100.5/BOURGEOIS Albuterol (Albuterol 2.5 Mg/3 Ml Nebu) 2.5 mg IH Q4HRT PRN PRN Reason: Shortness Of Breath Famotidine (Famotidine 20 Mg Tab) 20 mg PO BID [facility] Last Admin: 12/31/20 22:15 Dose: 20 mg Documented by: Heparin Sodium (Porcine) (Heparin 5,000 Unit/1 Ml Vial) 5,000 unit SUB-Q Q8HR [facility] Last Admin: 01/01/21 05:54 Dose: 5,000 unit Documented by: Sodium Chloride (Nacl 0.9% 1000 Ml) 1,000 mls @ 125 mls/hr IV DIRECT [facility] Last Admin: 12/31/20 18:42 Dose: 125 mls/hr Documented by: Vancomycin HCl 1,250 mg/ (Sodium Chloride) 275 mls @ 166.667 mls/hr IV Q12HR [facility] Last Admin: 12/31/20 22:33 Dose: 166.667 mls/hr Documented by: Ampicillin Sodium/Sulbactam Sodium (Unasyn/Ns 3 Gm/100 Ml) 3 gm in 100 mls @ 200 mls/hr IV Q6HR [facility] Last Admin: 01/01/21 05:58 Dose: 200 mls/hr Documented by: Insulin Glargine (Insulin Glargine 100 Units/Ml) 20 units SUB-Q QAMDIAB BARB Insulin Human Lispro (Insulin Lispro 100 Unit/Ml) 0 unit SUB-Q ACHS BARB; Protocol Last Admin: 12/31/20 22:33 Dose: 2 unit Documented by: Ondansetron HCl (Ondansetron 4 Mg/2 Ml Inj) 4 mg IV Q8H PRN PRN Reason: Nausea And Vomiting Oxycodone/Acetaminophen (Oxycodone /Acetaminophen 5-325mg Tab) 1 tab PO Q6H PRN PRN Reason: Pain, Moderate (4-6) Sodium Chloride (Sodium Chloride 0.9% 10 Ml Flush Syringe) 10 ml IV BID BARB Last Admin: 12/31/20 22:16 Dose: 10 ml Documented by: Sodium Chloride (Sodium Chloride 0.9% 10 Ml Flush Syringe) 10 ml IV PRN PRN PRN Reason: LINE FLUSH Review of Systems All systems: negative (none) Exam Vital Signs Temp Pulse Resp BP Pulse Ox 100.5 F H 128 H 16 120/87 95 12/30/20 23:18 12/30/20 23:18 12/30/20 23:18 12/30/20 23:18 12/30/20 23:18 - General physical appearance Positive: well developed, well nourished, no distress - Eyes Positive: PERRL, normal occular movement - ENT Positive: normal pinna, normal nares, normal mucosa, no hearing loss, no congestion - Neck Positive: no masses, no bruits, trachea midline, no venous distension - Respiratory Positive: normal expansion, normal respiratory effort, clear to auscultation - Cardiovascular Rhythm: regular Heart Sounds: Present: S1 & S2. Absent: rub, click - Extremities Extremities: no ischemia, pulses symmetrical, No edema - Breasts Breasts: normal, no mass, no skin changes - Abdomen Abdomen: Present: soft, bowel sounds normal. Absent: tender, distended Hernia: none - Genitourinary Male Genitourinary: normal Female Genitourinary: normal - Integumentary no rash, no growths, no abnormal pigmentation, other (There is a draining ulceration along the medial right foot at the level of the 1st metatarsal head. There is associated gangrenous tissue at this site.) - Neurologic Neurologic: alert and oriented to time, place and person, motor strength and sensation are grossly intact - Musculoskeletal normal gait, normal posture - Psychiatric Psychiatric: appropriate mood/affect, intact judgment & insight Results - Labs 01/01/21 04:00 01/01/21 04:00 Abnormal lab results 12/31/20 12/31/20 12/31/20 Range/Units 08:36 08:36 11:28 WBC (4.5-11.0) K/mm3 RDW (13.2-15.2) % [place] % (Auto) (0.0-7.3) % [place] # (Auto) (0.0-0.8) K/mm3 Seg Neutrophils % (40.0-70.0) % Seg Neutrophils # (1.8-7.7) K/mm3 Sodium 135 L (137-145) mmol/L BUN (9-20) mg/dL Creatinine (0.8-1.3) mg/dL Glucose 274 H (75-100) mg/dL POC Glucose 185 H (70-105) mg/dL Hemoglobin A1c 10.0 H (4-6) % Calcium (8.4-10.2) mg/dL 12/31/20 12/31/20 01/01/21 Range/Units 15:55 21:28 04:00 WBC 12.9 H (4.5-11.0) K/mm3 RDW 13.0 L (13.2-15.2) % [place] % (Auto) 8.5 H (0.0-7.3) % [place] # (Auto) 1.1 H (0.0-0.8) K/mm3 Seg Neutrophils % 72.6 H (40.0-70.0) % Seg Neutrophils # 9.3 H (1.8-7.7) K/mm3 Sodium (137-145) mmol/L BUN (9-20) mg/dL Creatinine (0.8-1.3) mg/dL Glucose (75-100) mg/dL POC Glucose 158 H 184 H (70-105) mg/dL Hemoglobin A1c (4-6) % Calcium (8.4-10.2) mg/dL 01/01/21 01/01/21 Range/Units 04:00 09:07 WBC (4.5-11.0) K/mm3 RDW (13.2-15.2) % [place] % (Auto) (0.0-7.3) % [place] # (Auto) (0.0-0.8) K/mm3 Seg Neutrophils % (40.0-70.0) % Seg Neutrophils # (1.8-7.7) K/mm3 Sodium 135 L (137-145) mmol/L BUN 8 L (9-20) mg/dL Creatinine 0.6 L (0.8-1.3) mg/dL Glucose 154 H (75-100) mg/dL POC Glucose 180 H (70-105) mg/dL Hemoglobin A1c (4-6) % Calcium 8.3 L (8.4-10.2) mg/dL Diabetes panel 12/31/20 12/31/20 01/01/21 Range/Units 08:36 08:36 04:00 Sodium 135 L 135 L (137-145) mmol/L Potassium 3.6 3.7 (3.6-5.0) mmol/L Chloride 100.6 102.1 (98-107) mmol/L Carbon Dioxide 22 22 (22-30) mmol/L BUN 12 8 L (9-20) mg/dL Creatinine 0.8 0.6 L (0.8-1.3) mg/dL Glucose 274 H 154 H (75-100) mg/dL Hemoglobin A1c 10.0 H (4-6) % Calcium 8.4 8.3 L (8.4-10.2) mg/dL Calcium panel 12/31/20 01/01/21 Range/Units 08:36 04:00 Calcium 8.4 8.3 L (8.4-10.2) mg/dL Pituitary panel 12/31/20 01/01/21 Range/Units 08:36 04:00 Sodium 135 L 135 L (137-145) mmol/L Potassium 3.6 3.7 (3.6-5.0) mmol/L Chloride 100.6 102.1 (98-107) mmol/L Carbon Dioxide 22 22 (22-30) mmol/L BUN 12 8 L (9-20) mg/dL Creatinine 0.8 0.6 L (0.8-1.3) mg/dL Glucose 274 H 154 H (75-100) mg/dL Calcium 8.4 8.3 L (8.4-10.2) mg/dL Adrenal panel 12/31/20 01/01/21 Range/Units 08:36 04:00 Sodium 135 L 135 L (137-145) mmol/L Potassium 3.6 3.7 (3.6-5.0) mmol/L Chloride 100.6 102.1 (98-107) mmol/L Carbon Dioxide 22 22 (22-30) mmol/L BUN 12 8 L (9-20) mg/dL Creatinine 0.8 0.6 L (0.8-1.3) mg/dL Glucose 274 H 154 H (75-100) mg/dL Calcium 8.4 8.3 L (8.4-10.2) mg/dL - Imaging Additional studies: MRI of right foot reviewed. Assessment and Plan - Patient Problems (1) Type 2 diabetes mellitus with foot ulcer Current Visit: Yes Status: Acute Plan to address problem: 1) RLE arterial dopplers 2) NPO after MN 3) To OR tomorrow for debridement of right foot ulcer
--- NOTE | 2021-01-01 11:10 | Electrocardiograph Report ---
[facility] Test Date: 2020-12-31 Test Time: 07:47:13 Pat Name: VENESSA MARIE Department: Room: A372 Gender: M [employer] Operator: KIMBER : [id number] Requested By: GRAEME ZAYAS Order Number: [id number] Reading MD: Oscar Benson Measurements Intervals [place] Rate: 94 P: 53 LA: 198 QRS: 37 QRSD: 104 T: 23 QT: 358 QTc: 448 Interpretive Statements Sinus rhythm Normal ECG No previous ECG available for comparison Electronically Signed On 01-01-2021 11:10:17 EST by Oscar Benson
[2021-01-01] MEDS: VANCOMYCIN 1,250 MG in SODIUM CHLORIDE 0.9% 250ML 250 ML IV SCH ×2 (12:00→23:32)
--- NOTE | 2021-01-01 12:03 | Progress Note ---
Assessment and Plan Cultures: Blood culture pending A/P: Unknown past medical history presented to the hospital complaining of a right foot ulcer. #Acute sepsis: Present with leukocytosis and fevers, secondary to infected foot wound. #Right foot wound: No osteomyelitis evident on MRI, however presence of gas gangrene. #Hyperglycemia: Likely diabetic, check hemoglobin A1c. Recs: -Arterial Dopplers -Continue vancomycin dosed per pharmacy, goal trough 10-20 -Continue Unasyn -Added clinda x9 doses for toxin inhibition given presence of gas formation -Obtain wound culture during debridement tomorrow Thank you for the consult, we will continue to follow. Kuldeep Valadez MD [facility], [place], [facility]ated [facility] ([facility]) O: [phone] F: [phone] Subjective Date of service: 01/01/21 Interval history: Afebrile, white count 12.9 which is improved from yesterday. Blood cultures remain negative. Imaging personally reviewed: Lower extremity MRI: No evidence of osteomyelitis or abscess. Associated cellulitis with gas gangrene. Objective - Exam Narrative Exam: Physical Exam: Constitutional: Alert, cooperative. No acute distress Head, Ears, Nose: Normocephalic, atraumatic. External ears, nose normal Eyes: Conjunctivae/corneas clear. No icterus. No ptosis. Neck: Supple, no meningeal signs Oral: dentition fair, no thrush Cardiovascular: S1, S2 normal. Respiratory: Good air entry, clear to auscultation bilaterally GI: Soft, non-tender; bowel sounds normal. No peritoneal signs. Musculoskeletal: Right foot plantar ulcer Skin: No rash or abscess Hem/Lymphatic: No palpable cervical or supraclavicular nodes. No lymphangitis Psych: Mood ok. Affect normal Neurological: Awake, alert, oriented. No gross abnormality - Constitutional Vitals: Vital Signs Temp Pulse Resp BP Pulse Ox 99.0 F 97 H 20 151/95 98 01/01/21 06:04 01/01/21 06:04 01/01/21 06:04 01/01/21 06:04 01/01/21 08:12 Temperature -Last 24 Hours Temperature 99.0 F Temperature 99.0 F - Labs CBC & Chem 7: 01/01/21 04:00 01/01/21 04:00 Labs: Abnormal lab results 11/10/1312/31/20 01/01/21 Range/Units 15:55 21:28 04:00 WBC 12.9 H (4.5-11.0) K/mm3 RDW 13.0 L (13.2-15.2) % [place] % (Auto) 8.5 H (0.0-7.3) % [place] # (Auto) 1.1 H (0.0-0.8) K/mm3 Seg Neutrophils % 72.6 H (40.0-70.0) % Seg Neutrophils # 9.3 H (1.8-7.7) K/mm3 Sodium (137-145) mmol/L BUN (9-20) mg/dL Creatinine (0.8-1.3) mg/dL Glucose (75-100) mg/dL POC Glucose 158 H 184 H (70-105) mg/dL Calcium (8.4-10.2) mg/dL 01/01/21 01/01/21 01/01/21 Range/Units 04:00 09:07 11:43 WBC (4.5-11.0) K/mm3 RDW (13.2-15.2) % [place] % (Auto) (0.0-7.3) % [place] # (Auto) (0.0-0.8) K/mm3 Seg Neutrophils % (40.0-70.0) % Seg Neutrophils # (1.8-7.7) K/mm3 Sodium 135 L (137-145) mmol/L BUN 8 L (9-20) mg/dL Creatinine 0.6 L (0.8-1.3) mg/dL Glucose 154 H (75-100) mg/dL POC Glucose 180 H 216 H (70-105) mg/dL Calcium 8.3 L (8.4-10.2) mg/dL
--- NOTE | 2021-01-01 14:00 | Progress Note ---
Assessment and Plan Assessment and plan: 60-year-old male with no known past medical history was brought to the emergency room because of painful swollen ulcerated right plantar foot wound for the last 1 month. Patient states that he cannot remember what may have caused the wound in his right plantar foot and that he has not been able to walk in the last 1 week because of worsening pain, swelling. Prior to arrival in the ED, the family states that the swollen wound started draining thick purulent discharge with blood and they decided bring him over to the ED for evaluation. According to family the patient has not seen any physician in over 15 years. Patient denies headache, fall, heavy lifting, low back pain, dizziness, syncope, traumatic injury, nausea and vomiting, diarrhea, abdominal pain, chest pain or shortness of breath. Patient is however tachycardic and febrile in triage. Physical exam reveals a quarter sized ulcerated right plantar foot wound with purulent discharge, swollen left foot with mild erythema on the dorsum of the right foot. In the emergency room patient WBC is 18.6 and lactic acid 3.10. X-ray of the foot shows plantar foot ulcer with soft tissue swelling but no soft tissue gas or radiographic evidence for osteomyelitis. Admit the patient to the medical floor we will put the patient on Vanco and Zosyn and consult infectious disease as well as orthopedic surgeon (1) diabetic ulcer with cellulitis of right foot Current Visit: Yes Status: Acute Plan to address problem: Admit the patient to the medical floor. Normal saline at the rate of 100 cc/h. Vancomycin 1 g IV every 12 hours. Zosyn 4.5 g IV every 8 hours. We do the blood culture wound culture. Will consult Dr. Alcantar as well as infectious di darerll evaluation. We also consult wound care evaluation. Will need debridement. MRI shows no osteomyelitis. (2) Sepsis with fever, leukocytosis and lactic acidosis, improving Current Visit: Yes Status: Acute Qualifiers: Sepsis type: sepsis due to unspecified organism Sepsis acute organ dysfunction status: without acute organ dysfunction Qualified Code(s): A41.9 - Sepsis, unspecified organism Plan to address problem: Improving, continue current antibiotic therapy. (3) Diabetes mellitus, new onset, A1c 10 Current Visit: Yes Status: Acute Plan to address problem: 1800 kcal ADA diet. Lantus with Humalog sliding scale with moderate dose coverage with Accu-Chek before meals and at bedtime. Diabetic education. Accu- Cheks and optimize glycemic control. Start Metformin and glipizide once sepsis improves (4) DVT prophylaxis Current Visit: Yes Status: Acute Plan to address problem: Heparin 5000 units subcu every 8 hours for DVT prophylaxis. Pepcid 20 mg p.o. twice daily for GI prophylaxis. Patient is a full code Discussed with patient 01/01: Per ID, Debridement planned in am. Patient RLE arterial doppler pending. Continue vacomycin and Clinda x 9 doses due to concern of gas formation. Plan discussed with the patient. Continue aggressive DM management. Personally discussed with surgeon, no orthopedic procedure planned. History Interval history: Patient seen and examined, no new complaints. Awaiting for Debridement Hospitalist Physical - Physical exam Narrative exam: General appearance: Present: no acute distress, well-nourished, obese - EENT Eyes: Present: PERRL, EOM intact ENT: clear oral mucosa - Neck Neck: Present: supple - Respiratory Respiratory effort: normal Respiratory: bilateral: CTA - Cardiovascular Rhythm: regular - Extremities Extremities: No edema Extremity abnormal: other (There is a shallow ulcer over the plantar aspect of left first metatarsophalangeal joint she is draining some purulence. Dorsum of the right foot is mildly swollen and red. Pedal pulses intact.) - Abdominal General gastrointestinal: soft, non-tender - Integumentary Integumentary: Absent: rash - Psychiatric Psychiatric: appropriate mood/affect - Neurologic Neurologic: no focal deficits - Constitutional Vitals: Temp Pulse Resp BP Pulse Ox 99.0 F 97 H 20 151/95 98 01/01/21 06:04 01/01/21 06:04 01/01/21 06:04 01/01/21 06:04 01/01/21 08:12 General appearance: Present: no acute distress, well-nourished, obese HEART Score - HEART Score Troponin: Troponin T < 0.010 ng/mL (0.00-0.029) 12/30/20 23:54 Results - Labs CBC & Chem 7: 01/01/21 04:00 01/01/21 04:00 Labs: Laboratory Last Values WBC 12.9 K/mm3 (4.5-11.0) H 01/01/21 04:00 RBC 4.22 M/mm3 (3.65-5.03) 01/01/21 04:00 Hgb 11.9 gm/dl (11.8-15.2) 01/01/21 04:00 Hct 36.1 % (35.5-45.6) 01/01/21 04:00 MCV 86 fl (84-94) 01/01/21 04:00 MCH 28 pg (28-32) 01/01/21 04:00 MCHC 33 % (32-34) 01/01/21 04:00 RDW 13.0 % (13.2-15.2) L 01/01/21 04:00 Plt Count 195 K/mm3 (140-440) 01/01/21 04:00 Lymph % (Auto) 17.6 % (13.4-35.0) 01/01/21 04:00 [place] % (Auto) 8.5 % (0.0-7.3) H 01/01/21 04:00 Eos % (Auto) 1.0 % (0.0-4.3) 01/01/21 04:00 Baso % (Auto) 0.3 % (0.0-1.8) 01/01/21 04:00 Lymph # (Auto) 2.3 K/mm3 (1.2-5.4) 01/01/21 04:00 [place] # (Auto) 1.1 K/mm3 (0.0-0.8) H 01/01/21 04:00 Eos # (Auto) 0.1 K/mm3 (0.0-0.4) 01/01/21 04:00 Baso # (Auto) 0.0 K/mm3 (0.0-0.1) 01/01/21 04:00 Seg Neutrophils % 72.6 % (40.0-70.0) H 01/01/21 04:00 Seg Neutrophils # 9.3 K/mm3 (1.8-7.7) H 01/01/21 04:00 Sodium 135 mmol/L (137-145) L 01/01/21 04:00 Potassium 3.7 mmol/L (3.6-5.0) 01/01/21 04:00 Chloride 102.1 mmol/L (98-107) 01/01/21 04:00 Carbon Dioxide 22 mmol/L (22-30) 01/01/21 04:00 Anion Gap 15 mmol/L 01/01/21 04:00 BUN 8 mg/dL (9-20) L 01/01/21 04:00 Creatinine 0.6 mg/dL (0.8-1.3) L 01/01/21 04:00 Estimated GFR > 60 ml/min 01/01/21 04:00 BUN/Creatinine Ratio 13 % 01/01/21 04:00 Glucose 154 mg/dL (75-100) H 01/01/21 04:00 POC Glucose 216 mg/dL (70-105) H 01/01/21 11:43 Hemoglobin A1c 10.0 % (4-6) H 12/31/20 08:36 Lactic Acid 1.60 mmol/L (0.7-2.0) 12/31/20 05:42 Calcium 8.3 mg/dL (8.4-10.2) L 01/01/21 04:00 Total Bilirubin 1.40 mg/dL (0.1-1.2) H 12/30/20 23:54 AST 12 units/L (5-40) 12/30/20 23:54 ALT 9 units/L (7-56) 12/30/20 23:54 Alkaline Phosphatase 80 units/L (35-129) 12/30/20 23:54 Troponin T < 0.010 ng/mL (0.00-0.029) 12/30/20 23:54 Total Protein 8.9 g/dL (6.3-8.2) H 12/30/20 23:54 Albumin 4.1 g/dL (3.9-5) 12/30/20 23:54 Albumin/Globulin Ratio 0.9 % 12/30/20 23:54 Microbiology: Microbiology 12/30/20 23:54 Peripheral/Venous Blood Culture - Preliminary NO GROWTH AFTER 24 HOURS 12/31/20 00:00 Peripheral/Venous Blood Culture - Preliminary NO GROWTH AFTER 24 HOURS [place]/IV: Voiding Method Toilet Active Medications - Current Medications Current Medications: Generic Name Dose Route Start Last Admin Trade Name Freq PRN Reason Stop Dose Admin Acetaminophen 650 mg 12/31/20 03:36 Acetaminophen 325 Mg Tab PO Q4H PRN Pain MILD(1-3)/Fever >100.5/BOURGEOIS Albuterol 2.5 mg 12/31/20 10:26 Albuterol 2.5 Mg/3 Ml Nebu IH Q4HRT PRN Shortness Of Breath Famotidine 20 mg 12/31/20 10:00 01/01/21 09:56 Famotidine 20 Mg Tab PO 20 mg BID BARB Administration Heparin Sodium (Porcine) 5,000 unit 12/31/20 06:00 01/01/21 05:54 Heparin 5,000 Unit/1 Ml Vial SUB-Q 5,000 unit Q8HR BARB Administration Sodium Chloride 1,000 mls @ 125 mls/hr 12/31/20 07:30 12/31/20 18:42 Nacl 0.9% 1000 Ml IV 125 mls/hr DIRECT BARB Administration Vancomycin HCl 1,250 mg/ 275 mls @ 166.667 mls/hr 12/31/20 10:00 12/31/20 22:33 Sodium Chloride IV 166.667 mls/hr Q12HR BARB Administration Ampicillin Sodium/Sulbactam Sodium 3 gm in 100 mls @ 200 mls/hr 12/31/20 18:00 01/01/21 05:58 Unasyn/Ns 3 Gm/100 Ml IV 200 mls/hr Q6HR BARB Administration Clindamycin HCl 900 mg in 50 mls @ 100 mls/hr 01/01/21 13:00 Cleocin 900 Mg/50 Ml IV 01/04/21 12:59 Q8H BARB Protocol Insulin Glargine 20 units 01/01/21 08:00 01/01/21 09:57 Insulin Glargine 100 Units/Ml SUB-Q 20 units QAMDIAB BARB Administration Insulin Human Lispro 0 unit 12/31/20 07:30 01/01/21 09:57 Insulin Lispro 100 Unit/Ml SUB-Q 2 unit ACHS BARB Administration Protocol Ondansetron HCl 4 mg 12/31/20 03:36 Ondansetron 4 Mg/2 Ml Inj IV Q8H PRN Nausea And Vomiting Oxycodone/Acetaminophen 1 tab 12/31/20 03:36 Oxycodone /Acetaminophen 5-325mg Tab PO Q6H PRN Pain, Moderate (4-6) Sodium Chloride 10 ml 12/31/20 10:00 12/31/20 22:16 Sodium Chloride 0.9% 10 Ml Flush Syringe IV 10 ml BID BARB Administration Sodium Chloride 10 ml 12/31/20 03:36 Sodium Chloride 0.9% 10 Ml Flush Syringe IV PRN PRN LINE FLUSH Nutrition/Malnutrition Assess - Dietary Evaluation Nutrition/Malnutrition Findings: Nutrition Notes Start: 12/31/20 11:17 Freq: Status: Active Protocol: Document 12/31/20 11:17 GB (Rec: 12/31/20 11:42 GB [email or web address]) Nutrition Notes Need for Assessment generated from: MD Order,Education Initial or Follow up Assessment Current Diagnosis Diabetes,Sepsis Other Pertinent Diagnosis cellulitis if right foot Current Diet Consistent carbohydrate Labs/Tests 12/31: Na 135, glucose 274 ( improved from 409), A1c 10 Pertinent Medications Piperacillin Na/ Tazobactam Na , Vancomycin HCl Height 5 ft 9 in Weight 103.873 kg [place] Body Weight (kg) 72.72 BMI 33.7 Intake Prior to Admission Good Weight change and time frame Admit weight. No reported weight changes upon admission Weight Status Obese Subjective/Other Information MD consult: diet education H/P: right foot ulcer, no known past med history, Has not been to primary for ~15yrs . BM: no movement recorded at time of assessment Percent of energy/protein needs met: Unable to assess. No diet order at this time. Burn Absent Trauma Absent GI Symptoms None Food Allergy No Skin Integrity/Comment Rt foot ulcer Current % PO Other Minimum of two criteria No #1 Nutrition Diagnosis Increased nutrient needs ( specify in comment below) Comments: protein Etiology Cellulitis right foot As Evidenced by Signs and Symptoms Rt foot ulcer for one month not healing Is patient on ventilator? No Is Patient Ambulatory and/or Out of Bed Yes REE-([facility]-ambulatory/OOB) [ 2403.843 [id number]] Kcal/Kg value to use for calculation 20 Approximate Energy Requirements Using 7 kcal/Kg Calculation Used for Recommendations Kcal/kg Additional Notes Protein: 0.8-1.2 g/kg @ 104k-125g Fluids: 1ml/kcal or per MD Nutrition Intervention Change Diet Order: Consistent Carbohydrate Nutrition Support: n/a Add Supplement/Snack (indicate name/kcal [place] BID for wound /protein ) Provides kCal: 190 Provides Protein (gm) 5 Teaching Recipient Patient,Significant Other Learning Readiness Good Teaching Methods Discussion,Handout Response to Teaching Verbalize understanding Education Handouts Provided AND: General healthy nutrition edcuation packet with tips to manage manage DM. Barriers to Learning No Barriers Goal #1 Diet advanced to consistent Carbohydrate Goal #2 PO intake of meals to be 75% or greater daily for LOS Goal #3 AND general nutrition education packet provided/ reviewed Follow-Up By: 01/17/21 Additional Comments f/u: DM questions to review, po intake
--- NOTE | 2021-01-01 17:30 | Vascular Lab Report ---
DUPLEX DOPPLER LOWER EXTREMITY ARTERIAL, RIGHT INDICATION: Right DFU. Right foot ulcer for 3 weeks, diabetes, right foot cellulitis TECHNIQUE: Arterial duplex examination of both lower extremities performed using B-mode, color flow and spectral Doppler assessment. FINDINGS: RIGHT: Common Femoral Artery: PSV 97 cm/sec. Triphasic waveform. Proximal SFA: PSV 130 cm/sec. Triphasic waveform. Mid SFA: PSV 123 cm/sec. Triphasic waveform. Distal SFA: PSV 113 cm/sec. Triphasic waveform. Popliteal artery: PSV 93 cm/sec. Triphasic waveform. Posterior tibial artery: PSV 101 cm/sec. Triphasic waveform. Anterior tibial artery: PSV 111 cm/sec. Triphasic waveform. Dorsalis Pedis Artery: PSV 186 cm/sec. Biphasic waveform. Additional findings: Minimal atherosclerotic plaques are noted in the distal anterior tibial artery a nd dorsalis pedis artery. IMPRESSION: Right lower extremity arterial structures are patent with multiphasic waveforms. Doppler Waveform: * Triphasic is normal. * Biphasic is abnormal if clear transition from triphasic signal along vascular tree. * Monophasic is abnormal. Signer Name: Gigi Ibarra Jr, MD Signed: 01/01/2021 5:26 PM Workstation Name: [id number]
[2021-01-01] MEDS: SODIUM CHLORIDE 0.9% 1000 ML 1,000 ML IV SCH (20:56)
[2021-01-02] MEDS: AMPICILLIN/SULBACTA 3GM/100ML 3 GM/100 ML BAG IV SCH ×5 (01:37→23:50)
[2021-01-02 05:01] LABS: Hematocrit 34.4 % (35.5-45.6); Hemoglobin 11.4 gm/dl (11.8-15.2); Mean Corpuscular HGB Conc 33 % (32-34); Mean Corpuscular Volume 85 fl (84-94); Platelet Count 198 K/mm3 (140-440); Red Blood Count 4.04 M/mm3 (3.65-5.03)
[2021-01-02 05:24] LABS: Blood Urea Nitrogen 6 mg/dL (9-20); Hemolysis Index 3
[2021-01-02 05:25] LABS: BUN/Creatinine Ratio 9
[2021-01-02] MEDS: HEPARIN 5,000 UNIT/1 ML VIAL SUB-Q SCH ×3 (05:57→22:49)
[2021-01-02] MEDS: SODIUM CHLORIDE 0.9% 1000 ML 1,000 ML IV SCH (12:14)
[2021-01-02] MEDS: INSULIN LISPRO 100 UNIT/ML SUB-Q SCH ×3 (12:15→23:35)
[2021-01-02] MEDS: INSULIN GLARGINE 100 UNITS/ML SUB-Q SCH (12:15)
[2021-01-02] MEDS: FAMOTIDINE 20 MG TAB PO SCH ×2 (12:16→22:50)
[2021-01-02] MEDS: VANCOMYCIN 1,250 MG in SODIUM CHLORIDE 0.9% 250ML 250 ML IV SCH (12:16)
--- NOTE | 2021-01-02 12:20 | Anesthesia Consultation ---
Anesthesia Consult and Med Hx Date of service: 01/02/21 - Airway Anesthetic Teeth Evaluation: Poor (multiple missing) ROM Head & Neck: Adequate Mental/Hyoid Distance: Adequate Mallampati Class: Class II Intubation Access Assessment: Probably Good - Pulmonary Exam CTA: Yes - Cardiac Exam Cardiac Exam: RRR - Pre-Operative Health Status ASA Pre-Surgery Classification: ASA3 Proposed Anesthetic Plan: General, MAC - Pulmonary Hx Smoking: No Hx Asthma: No COPD: No Hx Pneumonia: No - Cardiovascular System Hx Hypertension: No Hx Coronary Artery Disease: No - Central Nervous System Hx Seizures: No CVA: No - Gastrointestinal Hx Gastroesophageal Reflux Disease: No - Endocrine Hx Renal Disease: No Hx Insulin Dependent Diabetes: Yes (newly diagnosed/uncontrolled) Hx Thyroid Disease: No - Hematic Hx Anemia: No - Other Systems Hx Alcohol Use: No Hx Substance Use: No Hx Cancer: No Hx Obesity: Yes (BMI 33)
--- NOTE | 2021-01-02 12:21 | Anesthesia Day of Surgery ---
Anesthesia Day of Surgery - Day of Surgery Patient Examined: Yes Patient H&P Reviewed: Yes Patient is NPO: Yes
--- NOTE | 2021-01-02 12:57 | Progress Note ---
Assessment and Plan Assessment and plan: 60-year-old male with no known past medical history was brought to the emergency room because of painful swollen ulcerated right plantar foot wound for the last 1 month. Patient states that he cannot remember what may have caused the wound in his right plantar foot and that he has not been able to walk in the last 1 week because of worsening pain, swelling. Prior to arrival in the ED, the family states that the swollen wound started draining thick purulent discharge with blood and they decided bring him over to the ED for evaluation. According to family the patient has not seen any physician in over 15 years. Patient denies headache, fall, heavy lifting, low back pain, dizziness, syncope, traumatic injury, nausea and vomiting, diarrhea, abdominal pain, chest pain or shortness of breath. Patient is however tachycardic and febrile in triage. Physical exam reveals a quarter sized ulcerated right plantar foot wound with purulent discharge, swollen left foot with mild erythema on the dorsum of the right foot. In the emergency room patient WBC is 18.6 and lactic acid 3.10. X-ray of the foot shows plantar foot ulcer with soft tissue swelling but no soft tissue gas or radiographic evidence for osteomyelitis. Admit the patient to the medical floor we will put the patient on Vanco and Zosyn and consult infectious disease as well as orthopedic surgeon (1) diabetic ulcer with cellulitis of right foot Current Visit: Yes Status: Acute Plan to address problem: Admit the patient to the medical floor. Normal saline at the rate of 100 cc/h. Vancomycin 1 g IV every 12 hours. Zosyn 4.5 g IV every 8 hours. We do the blood culture wound culture. Will consult Dr. Alcantar as well as infectious di darrell evaluation. We also consult wound care evaluation. Will need debridement. MRI shows no osteomyelitis. (2) Sepsis with fever, leukocytosis and lactic acidosis, improving Current Visit: Yes Status: Acute Qualifiers: Sepsis type: sepsis due to unspecified organism Sepsis acute organ dysfunction status: without acute organ dysfunction Qualified Code(s): A41.9 - Sepsis, unspecified organism Plan to address problem: Improving, continue current antibiotic therapy. (3) Diabetes mellitus, new onset, A1c 10 Current Visit: Yes Status: Acute Plan to address problem: 1800 kcal ADA diet. Lantus with Humalog sliding scale with moderate dose coverage with Accu-Chek before meals and at bedtime. Diabetic education. Accu- Cheks and optimize glycemic control. Start Metformin and glipizide once sepsis improves (4) Hypokalemia-Replace (5) DVT prophylaxis Current Visit: Yes Status: Acute Plan to address problem: Heparin 5000 units subcu every 8 hours for DVT prophylaxis. Pepcid 20 mg p.o. twice daily for GI prophylaxis. Patient is a full code Discussed with patient 01/01: Per ID, Debridement planned in am. Patient RLE arterial doppler pending. Continue vacomycin and Clinda x 9 doses due to concern of gas formation. Plan discussed with the patient. Continue aggressive DM management. Personally discussed with surgeon, no orthopedic procedure planned. 01/02: Patient seen and examined, clinically stable, planned for debridement today. Discussed with family, further plans based on outcome of Debridement History Interval history: Patient seen and examined, no new complaints. Awaiting for Debridement, planned today, spouse at bedside Hospitalist Physical - Physical exam Narrative exam: General appearance: Present: no acute distress, well-nourished, obese - EENT Eyes: Present: PERRL, EOM intact ENT: clear oral mucosa - Neck Neck: Present: supple - Respiratory Respiratory effort: normal Respiratory: bilateral: CTA - Cardiovascular Rhythm: regular - Extremities Extremities: No edema Extremity abnormal: other (There is a shallow ulcer over the plantar aspect of left first metatarsophalangeal joint she is draining some purulence. Dorsum of the right foot is mildly swollen and red. Pedal pulses intact.) - Abdominal General gastrointestinal: soft, non-tender - Integumentary Integumentary: Absent: rash - Psychiatric Psychiatric: appropriate mood/affect - Neurologic Neurologic: no focal deficits - Constitutional Vitals: Temp Pulse Resp BP Pulse Ox 99.3 F 86 20 136/80 97 01/02/21 05:49 01/02/21 05:49 01/02/21 05:49 01/02/21 05:49 01/02/21 05:49 General appearance: Present: no acute distress, well-nourished, obese HEART Score - HEART Score Troponin: Troponin T < 0.010 ng/mL (0.00-0.029) 12/30/20 23:54 Results - Labs CBC & Chem 7: 01/02/21 04:45 01/02/21 04:45 Labs: Laboratory Last Values WBC 8.8 K/mm3 (4.5-11.0) 01/02/21 04:45 RBC 4.04 M/mm3 (3.65-5.03) 01/02/21 04:45 Hgb 11.4 gm/dl (11.8-15.2) L 01/02/21 04:45 Hct 34.4 % (35.5-45.6) L 01/02/21 04:45 MCV 85 fl (84-94) 01/02/21 04:45 MCH 28 pg (28-32) 01/02/21 04:45 MCHC 33 % (32-34) 01/02/21 04:45 RDW 13.0 % (13.2-15.2) L 01/02/21 04:45 Plt Count 198 K/mm3 (140-440) 01/02/21 04:45 Lymph % (Auto) 17.6 % (13.4-35.0) 01/01/21 04:00 [place] % (Auto) 8.5 % (0.0-7.3) H 01/01/21 04:00 Eos % (Auto) 1.0 % (0.0-4.3) 01/01/21 04:00 Baso % (Auto) 0.3 % (0.0-1.8) 01/01/21 04:00 Lymph # (Auto) 2.3 K/mm3 (1.2-5.4) 01/01/21 04:00 [place] # (Auto) 1.1 K/mm3 (0.0-0.8) H 01/01/21 04:00 Eos # (Auto) 0.1 K/mm3 (0.0-0.4) 01/01/21 04:00 Baso # (Auto) 0.0 K/mm3 (0.0-0.1) 01/01/21 04:00 Seg Neutrophils % 72.6 % (40.0-70.0) H 01/01/21 04:00 Seg Neutrophils # 9.3 K/mm3 (1.8-7.7) H 01/01/21 04:00 Sodium 137 mmol/L (137-145) 01/02/21 04:45 Potassium 3.5 mmol/L (3.6-5.0) L 01/02/21 04:45 Chloride 104.5 mmol/L (98-107) 01/02/21 04:45 Carbon Dioxide 22 mmol/L (22-30) 01/02/21 04:45 Anion Gap 14 mmol/L 01/02/21 04:45 BUN 6 mg/dL (9-20) L 01/02/21 04:45 Creatinine 0.7 mg/dL (0.8-1.3) L 01/02/21 04:45 Estimated GFR > 60 ml/min 01/02/21 04:45 BUN/Creatinine Ratio 9 % 01/02/21 04:45 Glucose 126 mg/dL (75-100) H 01/02/21 04:45 POC Glucose 124 mg/dL (70-105) H 01/02/21 11:34 Hemoglobin A1c 10.0 % (4-6) H 12/31/20 08:36 Lactic Acid 1.60 mmol/L (0.7-2.0) 12/31/20 05:42 Calcium 8.0 mg/dL (8.4-10.2) L 01/02/21 04:45 Total Bilirubin 1.40 mg/dL (0.1-1.2) H 12/30/20 23:54 AST 12 units/L (5-40) 12/30/20 23:54 ALT 9 units/L (7-56) 12/30/20 23:54 Alkaline Phosphatase 80 units/L (35-129) 12/30/20 23:54 Troponin T < 0.010 ng/mL (0.00-0.029) 12/30/20 23:54 Total Protein 8.9 g/dL (6.3-8.2) H 12/30/20 23:54 Albumin 4.1 g/dL (3.9-5) 12/30/20 23:54 Albumin/Globulin Ratio 0.9 % 12/30/20 23:54 Vancomycin Trough 13.8 ug/mL (5.0-20.0) 01/01/21 20:35 Microbiology: Microbiology 12/30/20 23:54 Peripheral/Venous Blood Culture - Preliminary NO GROWTH AFTER 48 HOURS 12/31/20 00:00 Peripheral/Venous Blood Culture - Preliminary NO GROWTH AFTER 48 HOURS 12/31/20 22:38 Foot - Right Wound Culture - Final Beta Hemolytic Strep Group B [place]/IV: Voiding Method Toilet Active Medications - Current Medications Current Medications: Generic Name Dose Route Start Last Admin Trade Name Freq PRN Reason Stop Dose Admin Acetaminophen 650 mg 12/31/20 03:36 Acetaminophen 325 Mg Tab PO Q4H PRN Pain MILD(1-3)/Fever >100.5/BOURGEOIS Albuterol 2.5 mg 12/31/20 10:26 Albuterol 2.5 Mg/3 Ml Nebu IH Q4HRT PRN Shortness Of Breath Famotidine 20 mg 12/31/20 10:00 01/02/21 12:16 Famotidine 20 Mg Tab PO 20 mg BID BARB Administration Heparin Sodium (Porcine) 5,000 unit 12/31/20 06:00 01/02/21 05:57 Heparin 5,000 Unit/1 Ml Vial SUB-Q 5,000 unit Q8HR BARB Administration Sodium Chloride 1,000 mls @ 125 mls/hr 12/31/20 07:30 01/02/21 12:14 Nacl 0.9% 1000 Ml IV 125 mls/hr DIRECT BARB Administration Vancomycin HCl 1,250 mg/ 275 mls @ 166.667 mls/hr 12/31/20 10:00 01/02/21 12:16 Sodium Chloride IV 166.667 mls/hr Q12HR BARB Administration Ampicillin Sodium/Sulbactam Sodium 3 gm in 100 mls @ 200 mls/hr 12/31/20 18:00 01/02/21 12:15 Unasyn/Ns 3 Gm/100 Ml IV 200 mls/hr Q6HR BARB Administration Clindamycin HCl 900 mg in 50 mls @ 100 mls/hr 01/01/21 13:00 01/02/21 06:19 Cleocin 900 Mg/50 Ml IV 01/04/21 12:59 100 mls/hr Q8H BARB Administration Protocol Insulin Glargine 20 units 01/01/21 08:00 01/02/21 12:15 Insulin Glargine 100 Units/Ml SUB-Q Not Given QAMDIAB BARB Insulin Human Lispro 0 unit 12/31/20 07:30 01/02/21 12:15 Insulin Lispro 100 Unit/Ml SUB-Q Not Given ACHS BARB Protocol Ondansetron HCl 4 mg 12/31/20 03:36 Ondansetron 4 Mg/2 Ml Inj IV Q8H PRN Nausea And Vomiting Oxycodone/Acetaminophen 1 tab 12/31/20 03:36 Oxycodone /Acetaminophen 5-325mg Tab PO Q6H PRN Pain, Moderate (4-6) Sodium Chloride 10 ml 12/31/20 10:00 01/02/21 12:16 Sodium Chloride 0.9% 10 Ml Flush Syringe IV 10 ml BID BARB Administration Sodium Chloride 10 ml 12/31/20 03:36 Sodium Chloride 0.9% 10 Ml Flush Syringe IV PRN PRN LINE FLUSH Nutrition/Malnutrition Assess - Dietary Evaluation Nutrition/Malnutrition Findings: Nutrition Notes Start: 12/31/20 11:17 Freq: Status: Active Protocol: Document 12/31/20 11:17 GB (Rec: 12/31/20 11:42 GB [id number]) Nutrition Notes Need for Assessment generated from: MD Order,Education Initial or Follow up Assessment Current Diagnosis Diabetes,Sepsis Other Pertinent Diagnosis cellulitis if right foot Current Diet Consistent carbohydrate Labs/Tests 12/31: Na 135, glucose 274 ( improved from 409), A1c 10 Pertinent Medications Piperacillin Na/ Tazobactam Na , Vancomycin HCl Height 5 ft 9 in Weight 103.873 kg [place] Body Weight (kg) 72.72 BMI 33.7 Intake Prior to Admission Good Weight change and time frame Admit weight. No reported weight changes upon admission Weight Status Obese Subjective/Other Information MD consult: diet education H/P: right foot ulcer, no known past med history, Has not been to primary for ~15yrs . BM: no movement recorded at time of assessment Percent of energy/protein needs met: Unable to assess. No diet order at this time. Burn Absent Trauma Absent GI Symptoms None Food Allergy No Skin Integrity/Comment Rt foot ulcer Current % PO Other Minimum of two criteria No #1 Nutrition Diagnosis Increased nutrient needs ( specify in comment below) Comments: protein Etiology Cellulitis right foot As Evidenced by Signs and Symptoms Rt foot ulcer for one month not healing Is patient on ventilator? No Is Patient Ambulatory and/or Out of Bed Yes REE-([place] or-ambulatory/OOB) [ 2403.843 [id number]] Kcal/Kg value to use for calculation 20 Approximate Energy Requirements Using 2077 kcal/Kg Calculation Used for Recommendations Kcal/kg Additional Notes Protein: 0.8-1.2 g/kg @ 104k-125g Fluids: 1ml/kcal or per MD Nutrition Intervention Change Diet Order: Consistent Carbohydrate Nutrition Support: n/a Add Supplement/Snack (indicate name/kcal [place] BID for wound /protein ) Provides kCal: 190 Provides Protein (gm) 5 Teaching Recipient Patient,Significant Other Learning Readiness Good Teaching Methods Discussion,Handout Response to Teaching Verbalize understanding Education Handouts Provided AND: General healthy nutrition edcuation packet with tips to manage manage DM. Barriers to Learning No Barriers Goal #1 Diet advanced to consistent Carbohydrate Goal #2 PO intake of meals to be 75% or greater daily for LOS Goal #3 AND general nutrition education packet provided/ reviewed Follow-Up By: 01/17/21 Additional Comments f/u: DM questions to review, po intake
[2021-01-02] MEDS ORDERED: HYDROmorphone 1 MG/1 ML INJ IV PRN (14:05)
--- NOTE | 2021-01-02 14:17 | Progress Note ---
Assessment and Plan Cultures: Blood culture no growth Wound culture: GBS A/P: Unknown past medical history presented to the hospital complaining of a right foot ulcer. #Acute sepsis: Present with leukocytosis and fevers, secondary to infected foot wound. #Right foot wound: No osteomyelitis evident on MRI, however presence of gas gangrene. #Hyperglycemia: Likely diabetic, check hemoglobin A1c. Recs: -Arterial Dopplers -Stop vancomycin given GBS on culture. -Continue Unasyn -Added clinda x9 doses for toxin inhibition given presence of gas formation -Obtain wound culture during debridement Thank you for the consult, we will continue to follow. Kuldeep Valadez MD [facility] ([facility]) O: [phone] F: [phone] Subjective Date of service: 01/02/21 Interval history: Afebrile, normal white count. Wound cultures with group B strep. For the OR today for debridement. Objective - Exam Narrative Exam: Physical Exam: Constitutional: Alert, cooperative. No acute distress Head, Ears, Nose: Normocephalic, atraumatic. External ears, nose normal Eyes: Conjunctivae/corneas clear. No icterus. No ptosis. Neck: Supple, no meningeal signs Oral: dentition fair, no thrush Cardiovascular: S1, S2 normal. Respiratory: Good air entry, clear to auscultation bilaterally GI: Soft, non-tender; bowel sounds normal. No peritoneal signs. Musculoskeletal: Right foot plantar ulcer Skin: No rash or abscess Hem/Lymphatic: No palpable cervical or supraclavicular nodes. No lymphangitis Psych: Mood ok. Affect normal Neurological: Awake, alert, oriented. No gross abnormality - Constitutional Vitals: Vital Signs Temp Pulse Resp BP Pulse Ox 99.3 F 86 20 136/80 97 01/02/21 05:49 01/02/21 05:49 01/02/21 05:49 01/02/21 05:49 01/02/21 05:49 Temperature -Last 24 Hours Temperature 99.3 F Temperature 99.4 F Temperature 98.1 F - Labs CBC & Chem 7: 01/02/21 04:45 01/02/21 04:45 Labs: Abnormal lab results 01/01/21 01/01/21 01/02/21 Range/Units 15:56 22:09 04:45 Hgb 11.4 L (11.8-15.2) gm/dl Hct 34.4 L (35.5-45.6) % RDW 13.0 L (13.2-15.2) % Potassium (3.6-5.0) mmol/L BUN (9-20) mg/dL Creatinine (0.8-1.3) mg/dL Glucose (75-100) mg/dL POC Glucose 179 H 151 H (70-105) mg/dL Calcium (8.4-10.2) mg/dL 01/02/21 01/02/21 01/02/21 Range/Units 04:45 08:08 11:34 Hgb (11.8-15.2) gm/dl Hct (35.5-45.6) % RDW (13.2-15.2) % Potassium 3.5 L (3.6-5.0) mmol/L BUN 6 L (9-20) mg/dL Creatinine 0.7 L (0.8-1.3) mg/dL Glucose 126 H (75-100) mg/dL POC Glucose 158 H 124 H (70-105) mg/dL Calcium 8.0 L (8.4-10.2) mg/dL
[2021-01-02] MEDS ORDERED: propofoL 200 MG/20 ML VIAL IV ONE ×2 (14:42→15:12)
[2021-01-02] MEDS ORDERED: MIDAZOLAM 2 MG/2 ML INJ ONE (14:42)
[2021-01-02] MEDS ORDERED: GLYCOPYRROLATE 0.4 MG/2 ML INJ ONE (15:01)
[2021-01-02] MEDS ORDERED: SODIUM CHLORIDE 0.9% IRR 1,500 ML BOTTLE IR ONE (15:02)
--- NOTE | 2021-01-02 15:58 | Procedure Note ---
Date of procedure: 01/02/21 Pre-op diagnosis: Diabetic right foot ulcer Post-op diagnosis: same Procedure: Debridement of right DFU Description of procedure: Pt was placed supine on the OR table. General anesthesia was administered. Right foot was prepped and draped. Calloused skin was excised with scissors. Clotted blood on the plantar aspect of the foot was removed with a curette revealing viable skin beneath the clot. There were no overt deep ulcers or evidence of deep infection. Dry 4 X 4's were placed over the debrided area and these were secured with a Kerlix wrap. Pt tolerated the procedure well and was taken to PACU in stable condition. Anesthesia: other (LMA) Surgeon: CORRIE SAMSON Estimated blood loss: minimal Pathology: none Specimen disposition: discarded Condition: stable Disposition: PACU
--- NOTE | 2021-01-02 16:33 | Post Anesthesia Evaluation ---
- Post Anesthesia Evaluation Patient Participated: Yes Airway Patent: Yes Stable Respiratory Function: Yes Nausea/Vomiting: No Temp > 96.8F: Yes Pain Manageable: Yes Adequeate Hydration: Yes Anesthesia Complications: No
[2021-01-02 19:45] LABS: Bilirubin,Urine NEG (Negative); Blood,Urine NEG (Negative); Color,Urine Yellow (Yellow); Mucus,Urine FEW /HPF; Protein,Urine <15 mg/dL mg/dL (Negative)
[2021-01-02] MEDS: ACETAMINOPHEN 325 MG TAB PO PRN (22:30)
[2021-01-03] MEDS: AMPICILLIN/SULBACTA 3GM/100ML 3 GM/100 ML BAG IV SCH ×2 (05:44→12:06)
[2021-01-03] MEDS: HEPARIN 5,000 UNIT/1 ML VIAL SUB-Q SCH ×2 (05:44→14:21)
[2021-01-03] MEDS: ACETAMINOPHEN 325 MG TAB PO PRN (06:17)
[2021-01-03] MEDS: SODIUM CHLORIDE 0.9% 1000 ML 1,000 ML IV SCH (08:26)
[2021-01-03] MEDS: INSULIN LISPRO 100 UNIT/ML SUB-Q SCH (08:30)
--- NOTE | 2021-01-03 08:58 | Discharge Summary ---
Providers - Providers Date of Admission: 12/31/20 03:53 Attending physician: NATHAN BROWN MD 12/31/20 03:36 Consult to Dietitian/Nutrition [CONS] Routine Physician Instructions: Reason For Exam: Reason for Consult: Diet education Consult to Physician [CONS] Routine Comment: Consulting Provider: CHERI TAYLOR Physician Instructions: Reason For Exam: foot ulcer 12/31/20 03:47 Consult to Physician [CONS] Routine Comment: Consulting Provider: COLLEEN WALKER Physician Instructions: Reason For Exam: Diabetic foot ulcer Consult to Wound/ET Nurse [CONS] Routine Reason For Exam: wound eval 12/31/20 08:14 Consult to Wound/ET Nurse [CONS] Routine Reason For Exam: wound eval 01/01/21 06:17 Consult to Physician [CONS] Routine Comment: Consulting Provider: CORRIE ALCANTAR Physician Instructions: Reason For Exam: Diabetic infected foot ulcer Primary care physician: JEWEL STAKER Hospitalization Reason for admission: Sepsis Condition: Stable Hospital course: 60-year-old male with no known past medical history was brought to the emergency room because of painful swollen ulcerated right plantar foot wound for the last 1 month. Patient states that he cannot remember what may have caused the wound in his right plantar foot and that he has not been able to walk in the last 1 week because of worsening pain, swelling. Prior to arrival in the ED, the family states that the swollen wound started draining thick purulent discharge with blood and they decided bring him over to the ED for evaluation. According to family the patient has not seen any physician in over 15 years. Patient denies headache, fall, heavy lifting, low back pain, dizziness, syncope, traumatic injury, nausea and vomiting, diarrhea, abdominal pain, chest pain or shortness of breath. Patient is however tachycardic and febrile in triage. Physical exam reveals a quarter sized ulcerated right plantar foot wound with purulent disc harge, swollen left foot with mild erythema on the dorsum of the right foot. In the emergency room patient WBC is 18.6 and lactic acid 3.10. X-ray of the foot shows plantar foot ulcer with soft tissue swelling but no soft tissue gas or radiographic evidence for osteomyelitis. Admit the patient to the medical floor we will put the patient on Vanco and Zosyn and consult infectious disease as well as orthopedic surgeon (1) diabetic ulcer with cellulitis of right foot Current Visit: Yes Status: Acute Plan to address problem: Admit the patient to the medical floor. Normal saline at the rate of 100 cc/h. Vancomycin 1 g IV every 12 hours. Zosyn 4.5 g IV every 8 hours. We do the blood culture wound culture. Will consult Dr. Alcantar as well as infectious disease evaluation. We also consult wound care evaluation. Will need debridement. MRI shows no osteomyelitis. (2) Sepsis with fever, leukocytosis and lactic acidosis, improving Current Visit: Yes Status: Acute Qualifiers: Sepsis type: sepsis due to unspecified organism Sepsis acute organ dysfunction status: without acute organ dysfunction Qualified Code(s): A41.9 - Sepsis, unspecified organism Plan to address problem: Improving, continue current antibiotic therapy. (3) Diabetes mellitus, new onset, A1c 10 Current Visit: Yes Status: Acute Plan to address problem: 1800 kcal ADA diet. Lantus with Humalog sliding scale with moderate dose coverage with Accu-Chek before meals and at bedtime. Diabetic education. Accu- Cheks and optimize glycemic control. Start Metformin and glipizide once sepsis improves (4) Hypokalemia-Replace 01/01: Per ID, Debridement planned in am. Patient RLE arterial doppler pending. Continue vacomycin and Clinda x 9 doses due to concern of gas formation. Plan discussed with the patient. Continue aggressive DM management. Personally discussed with surgeon, no orthopedic procedure planned. 01/02: Patient seen and examined, clinically stable, planned for debridement today. Discussed with family, further plans based on outcome of Debridement 01/03: Patient clinically stable doing well. Discussed with surgeon who states that the debridement did not reveal deep tissue. Is okay with patient being discharged today also discussed with ID Augmentin ordered for the patient for total of 12 days. Patient to follow-up at the wound care clinic and also with ID and surgeon. Patient verbalized understanding at this time and is ready for discharge Disposition: HOME HEALTH CARE SERVICE Final Discharge Diagnosis (Prints w/discharge instructions): Sepsis with diabetic foot ulcer Time spent for discharge: 35 minutes Core Measure Documentation - Palliative Care Palliative Care/ Comfort Measures: Not Applicable - Core Measures Any of the following diagnoses?: none Exam - Physical Exam Narrative exam: General appearance: Present: no acute distress, well-nourished, obese - EENT Eyes: Present: PERRL, EOM intact ENT: clear oral mucosa - Neck Neck: Present: supple - Respiratory Respiratory effort: normal Respiratory: bilateral: CTA - Cardiovascular Rhythm: regular - Extremities Extremities: No edema Extremity abnormal: other (There is a shallow ulcer over the plantar aspect of left first metatarsophalangeal joint she is draining some purulence. Dorsum of the right foot is mildly swollen and red. Pedal pulses intact.) - Abdominal General gastrointestinal: soft, non-tender - Integumentary Integumentary: Absent: rash - Psychiatric Psychiatric: appropriate mood/affect - Neurologic Neurologic: no focal deficits - Constitutional Vitals: Temp Pulse Resp BP Pulse Ox 100.1 F H 86 20 145/90 97 01/03/21 06:53 01/03/21 06:53 01/03/21 06:53 01/03/21 06:53 01/03/21 06:53 Plan Activity: advance as tolerated Diet: diabetic Wound: per your surgeon's advice, per wound nurse instructions Special Instructions: record daily weights, record daily BP diary, record blood sugar diary Follow up with: PRIMARY CAREMD [Primary Care Provider] - 7 Days [facility] [Outside] - 7 Days CORRIE ALCANTAR MD [Staff Physician] - 7 Days EL MARIEE MD [Staff Physician] - 7 Days Prescriptions: Amoxicillin/Potassium Clav [Augmentin 875-125 Tablet] 1 each PO BID #24 tablet Insulin Glargine [Lantus VIAL] 20 units SUB-Q QAMDIAB #10 ml Insulin NPH Human Isophane [Novolin N] 0 unit SQ ACHS #1 vial Famotidine [Pepcid] 20 mg PO BID #30 tablet oxyCODONE /ACETAMINOPHEN [Percocet 5/325 mg] 1 tab PO Q6H PRN #14 tablet PRN Reason: Pain, Moderate (4-6) Other Discharge Orders: Glucometer (Amb) Location: None Selected Glucometer supplies[Amb] Location: None Selected
[2021-01-03] MEDS: INSULIN GLARGINE 100 UNITS/ML SUB-Q SCH (10:18)
[2021-01-03] MEDS: FAMOTIDINE 20 MG TAB PO SCH (10:18)
--- NOTE | 2021-01-03 10:51 | Progress Note ---
Assessment and Plan Cultures: Blood culture no growth Wound culture: GBS A/P: Unknown past medical history presented to the hospital complaining of a right foot ulcer. #Acute sepsis: Present with leukocytosis and fevers, secondary to infected foot wound. #Right foot wound: No osteomyelitis evident on MRI, however presence of gas gangrene. #Hyperglycemia: Likely diabetic, check hemoglobin A1c. Recs: -Continue Unasyn -Added clinda x9 doses for toxin inhibition given presence of gas formation -OK to DC on 14 days Augmentin 875/125 mg every 12 hours Thank you for the consult, we will continue to follow. Kuldeep Valadez MD [facility] ([facility]) O: [phone] F: [phone] Subjective Date of service: 01/03/21 Interval history: Afebrile, low-grade temperatures at 100.1. Blood count 8.8. Had debridement done yesterday, no evidence of deep infection. Objective - Exam Narrative Exam: Physical Exam: Constitutional: Alert, cooperative. No acute distress Head, Ears, Nose: Normocephalic, atraumatic. External ears, nose normal Eyes: Conjunctivae/corneas clear. No icterus. No ptosis. Neck: Supple, no meningeal signs Oral: dentition fair, no thrush Cardiovascular: S1, S2 normal. Respiratory: Good air entry, clear to auscultation bilaterally GI: Soft, non-tender; bowel sounds normal. No peritoneal signs. Musculoskeletal: Right foot plantar ulcer Skin: No rash or abscess Hem/Lymphatic: No palpable cervical or supraclavicular nodes. No lymphangitis Psych: Mood ok. Affect normal Neurological: Awake, alert, oriented. No gross abnormality - Constitutional Vitals: Vital Signs Temp Pulse Resp BP Pulse Ox 100.1 F H 86 20 145/90 97 01/03/21 06:53 01/03/21 06:53 01/03/21 06:53 01/03/21 06:53 01/03/21 06:53 Temperature -Last 24 Hours Temperature 100.1 F Temperature 100.0 F Temperature 98.4 F Temperature 97.6 F Temperature 97.9 F - Labs CBC & Chem 7: 01/02/21 04:45 01/02/21 04:45 Labs: Abnormal lab results 01/02/21 01/02/21 01/02/21 Range/Units 11:34 15:34 17:17 POC Glucose 124 H 118 H 125 H (70-105) mg/dL 01/02/21 01/03/21 Range/Units 22:08 08:19 POC Glucose 116 H 147 H (70-105) mg/dL
[2021-01-03 11:30] VITALS: BP 135/87
== END 2021-01-03 18:00 | disposition home health service (06) | DRG 872 ==
LOC: ED 23:04 → 3A 12-31 03:53
PROVIDERS: ADMIT Hospitalist; ATTEND Internal Medicine
PROC: 0HBMXZZ Excision of Right Foot Skin, External Approach (ICD-10-PCS; principal; 2021-01-02)
DX: A41.9 Sepsis, unspecified organism (principal); L03.115 Cellulitis of right lower limb; M86.8X7 Other osteomyelitis, ankle and foot; E11.65 Type 2 diabetes mellitus with hyperglycemia; E87.6 Hypokalemia; Z20.822 Contact with and (suspected) exposure to COVID-19; E11.621 Type 2 diabetes mellitus with foot ulcer; L97.519 Non-pressure chronic ulcer of other part of right foot with unspecified severity; Z83.3 Family history of diabetes mellitus
CPT/HCPCS: 36415; 71045; 71046; 80048; 80053; 80202; 81001; 82140; 82962; 83036; 84484; 85025; 85027; 87040; 87116; 90686; 93005; 94640; 94760; G0378; A9575; J0295; J1644; J1815; J2250; J2543; J2704; J3370; J7030; J7050